=== PATIENT | male | born 1975 | race Caucasian/White ===

== ENCOUNTER 2022-12-09 14:52 | Inpatient (IN) | payer MEDICAID ==
[~2022-12-09] VITALS: Ht 175.3 cm; Wt 84.9 kg
[2022-12-09 14:53] VITALS: BP_SYST 148; PULSE 131; RESP 20; TEMP 97; O2SAT 98
[2022-12-09] MEDS ORDERED: NACL 0.9% 1,000 ML IV ONE ×3 (15:15→17:00)
[2022-12-09] MEDS ORDERED: NALOXONE HCL 2 MG/2 ML SYR (NARCAN) IVP ONE (15:15)
[2022-12-09] MEDS ORDERED: NALOXONE HCL 2 MG/2 ML SYR ONE (15:23)
[2022-12-09 15:34] LABS: HEMOGLOBIN 12.2 g/dL (14.0-18.0); MEAN CORPUSCULAR VOLUME 96 fL (79.0-98.0)
[2022-12-09 15:42] LABS: HEMATOCRIT 38.6 % (36-54); MEAN CORPUSCULAR HEMOGLOBIN 30 pg (27-31); MEAN CORPUSCULAR HGB CONC 32 % (32-36); PLATELET COUNT (AUTO) 118 K/uL (130-430); RED BLOOD CELL COUNT(AUTO) 4.02 MIL/uL (4.2-6.2); RED CELL DISTRIBUTION WIDTH 20.6 % (9.0-15.0); WHITE BLOOD COUNT (AUTO) 4.1 K/uL (4.8-10.8)
[2022-12-09 15:52] LABS: ANION GAP 15 (5-15); CARBON DIOXIDE 24 mmol/L (23-29); CHLORIDE 97 mmol/L (98-107); CREATININE 2.95 mg/dL (0.55-1.30); GFR AFRICAN AMERICAN 29 mL/min (>90); GLUCOSE 108 mg/dL (74-106); POTASSIUM 4.1 mmol/L (3.5-5.1); SODIUM SERUM 136 mmol/L (136-145); UREA NITROGEN, BLOOD 52 mg/dL (8-21)
[2022-12-09 15:54] LABS: GFR NON AFRICAN-AMERICAN 24 mL/min (>90)
[2022-12-09 16:05] LABS: ALANINE AMINOTRANSFERASE 29 U/L (12-78); ALBUMIN 2.3 g/dL (3.4-4.8); ASPARTATE AMINOTRANSFERASE 95 U/L (10-37); CREATINE KINASE, TOTAL 1521 U/L (39-308); TOTAL BILIRUBIN 1.1 mg/dL (0.0-1.0); TOTAL PROTEIN, SERUM 6.2 g/dL (6.4-8.3)
[2022-12-09 16:13] LABS: BAND % (MANUAL) 48 % (0-6); BASOPHILS % (MANUAL) 0 % (0-2); EOSINOPHILS % (MANUAL) 0 % (0-7); LYMPHOCYTES % (MANUAL) 12 % (20-46); METAMYELOCYTES % 1 % (0-0); MONOCYTES % (MANUAL) 14 % (0-11)
[2022-12-09 16:14] LABS: ANISOCYTOSIS 2+; CORRECTED WHITE BLOOD COUNT 3.7 K/uL (4.5-11.0); POLYCHROMASIA 1+
[2022-12-09 16:40] LABS: CKMB RELATIVE INDEX 0.7 (0.0-2.9); CREATINE KINASE MB 10.2 ng/mL (0-3.6)
[2022-12-09] MEDS ORDERED: VANCOMYCIN HCL 1,000 MG in NS 250 ML IV ONE (17:00)
[2022-12-09] MEDS ORDERED: PIPERACILLIN/TAZO 3.375 GM in NS 50 ML IV ONE (17:00)
[2022-12-09] MEDS ORDERED: VANCOMYCIN HCL 1000 MG/VIAL IV ONE (17:30)
[2022-12-09] MEDS ORDERED: PIPERACILLIN/TAZOBACTAM 3.375 GM/VIAL (ZOSYN) IV ONE (17:30)
[2022-12-09 19:41] LABS: BARBITURATE, URINE NEGATIVE (NEG <=200); BENZODIAZEPINE, URINE NEGATIVE (NEG <=150); CANNABINOID, URINE NEGATIVE (NEG <=50); COCAINE, URINE NEGATIVE (NEG <=150); METHAMPHETAMINES SCREEN,URINE NEGATIVE (NEG <=500); OPIATE, URINE POSITIVE (NEG <=100); PHENCYCLIDINE SCREEN,URINE NEGATIVE (NEG <=25); URINE AMPHETAMINE NEGATIVE (NEG <=500); URINE METHADONE NEGATIVE (NEG <=200); URINE PROPOXYPHENE SCREEN NEGATIVE (NEG <=300)
[2022-12-09 19:42] LABS: UR TRICYCLIC ANTIDEPRESSANTS POSITIVE (NEG <=300); URINE OXYCODONE SCREEN POSITIVE (NEG <=100)
[2022-12-09] MEDS: D5/0.45 NS 1,000 ML IV SCH (20:13)
[2022-12-09] MEDS ORDERED: LOPERAMIDE HCL 2 MG CAPSULE PO ONE (20:30)
[2022-12-09] MEDS ORDERED: LEVO125T8 PO (21:08)
[2022-12-09] MEDS ORDERED: BACL10TA PO (21:08)
[2022-12-09] MEDS ORDERED: FURO40TA5 PO (21:08)
[2022-12-09] MEDS ORDERED: CARV25TA55 PO (21:08)
[2022-12-09] MEDS ORDERED: GLIP5TAB13 PO (21:08)
[2022-12-09] MEDS ORDERED: ROSU20TA32 PO (21:08)
[2022-12-09] MEDS ORDERED: AMLO5TAB92 PO (21:08)
[2022-12-09] MEDS ORDERED: KETOROLAC TROMETHAMINE 30 MG VIAL ONE (21:44)
[2022-12-09] MEDS ORDERED: KETOROLAC TROMETHAMINE 30 MG VIAL IVP ONE (21:45)
[2022-12-10] VITALS (7 sets, daily range): BP systolic 99–127; PULSE 67–120; RESP 16–20; TEMP 97.5–98.2; O2SAT 94–100
[2022-12-10] MEDS: traMADol HCL HCL 50 MG TABLET (ULTRAM) PO PRN ×2 (03:28→09:38)
[2022-12-10] MEDS ORDERED: DILTIAZEM HCL 30 MG TABLET PO ONE (03:30)
[2022-12-10] MEDS: D5/0.45 NS 1,000 ML IV SCH ×3 (05:54→21:07)
[2022-12-10] MEDS ORDERED: NALOXONE HCL 0.4 MG/ML AMP (NARCAN) IVP PRN ×2 (11:15)
[2022-12-10] MEDS ORDERED: OXYCODONE/ACETAMINOPHEN 5-325 TABLET PO PRN (11:15)
[2022-12-10] MEDS ORDERED: HYDROcodone/ACETAMIN 5-325 MG TAB (NORCO/ VICODIN) PO PRN (11:15)
[2022-12-10] MEDS ORDERED: ACETAMINOPHEN/CODEINE 300 MG-30 MG TABLET PO PRN (11:15)
[2022-12-10] MEDS: BACLOFEN 10 MG TABLET PO SCH ×2 (14:08→21:04)
[2022-12-10] MEDS ORDERED: LORazepam 2 MG/ML VIAL IVP PRN (18:15)
[2022-12-10] MEDS ORDERED: ONDANSETRON HCL 4 MG/2 ML VIAL IVP PRN (18:15)
[2022-12-10] MEDS: oxyCODONE HCL 5 MG TABLET PO PRN (20:04)
[2022-12-10] MEDS ORDERED: NON-FORMULARY MEDICATION (Rosuvastatin Calcium 1 TAB) PO SCH (21:00)
[2022-12-10] MEDS: FUROSEMIDE 40 MG TABLET PO SCH (21:03)
[2022-12-10] MEDS: CARVEDILOL 25 MG TABLET (COREG) PO SCH (21:03)
[2022-12-10] MEDS: ATORVASTATIN 20 MG TABLET PO SCH (21:04)
[2022-12-11] MEDS: oxyCODONE HCL 5 MG TABLET PO PRN ×4 (00:05→22:56)
[2022-12-11 00:35] VITALS: BP_SYST 147; PULSE 125; RESP 21; TEMP 97.9; O2SAT 94
[2022-12-11] MEDS ORDERED: HYDROmorphone 1 MG/ML INJ. CARTRIDGE IVP ONE (01:00)
[2022-12-11] MEDS ORDERED: NALOXONE HCL 0.4 MG/ML AMP (NARCAN) IVP PRN (01:00)
[2022-12-11] MEDS: LEVOTHYROXINE SODIUM 0.125 MG TABLET PO SCH (06:31)
[2022-12-11 07:09] LABS: BASOPHILS # (AUTO) 0.1 K/uL (0.0-0.2); BASOPHILS % (AUTO) 0.7 % (0.0-2.0); EOSINOPHILS # (AUTO) 0.3 K/uL (0.0-0.4); EOSINOPHILS % (AUTO) 3.1 % (0.0-4.0); HEMATOCRIT 32.2 % (36-54); HEMOGLOBIN 10.4 g/dL (14.0-18.0); LYMPHOCYTES # (AUTO) 0.8 K/uL (1.0-5.5); LYMPHOCYTES % (AUTO) 9.7 % (20.5-51.5); MEAN CORPUSCULAR HEMOGLOBIN 30 pg (27-31); MEAN CORPUSCULAR HGB CONC 32 % (32-36); MEAN CORPUSCULAR VOLUME 94 fL (79.0-98.0); MONOCYTES # (AUTO) 0.6 K/uL (0.0-1.0); MONOCYTES % (AUTO) 7.5 % (1.7-9.3); NEUTROPHILS # (AUTO) 6.6 K/uL (1.8-7.7); PLATELET COUNT (AUTO) 96 K/uL (130-430); RED BLOOD CELL COUNT(AUTO) 3.42 MIL/uL (4.2-6.2); RED CELL DISTRIBUTION WIDTH 20.3 % (9.0-15.0); WHITE BLOOD COUNT (AUTO) 8.3 K/uL (4.8-10.8)
[2022-12-11 07:47] LABS: CALCIUM 7.7 mg/dL (8.4-11.0); CREATININE 1.22 mg/dL (0.55-1.30); PHOSPHORUS 3.7 mg/dL (2.7-4.5); POTASSIUM 3.4 mmol/L (3.5-5.1)
[2022-12-11 07:55] VITALS: BP_SYST 130; PULSE 109; RESP 20; TEMP 97.4; O2SAT 95
[2022-12-11 08:00] VITALS: O2SAT 95
[2022-12-11] MEDS: BACLOFEN 10 MG TABLET PO SCH ×3 (08:09→20:10)
[2022-12-11] MEDS: FUROSEMIDE 40 MG TABLET PO SCH ×2 (08:10→20:15)
[2022-12-11] MEDS: amLODIPine BESYLATE 5 MG TABLET PO SCH (08:10)
[2022-12-11] MEDS: CARVEDILOL 25 MG TABLET (COREG) PO SCH ×2 (08:11→20:14)
[2022-12-11 09:36] LABS: CKMB RELATIVE INDEX 0.4 (0.0-2.9); CREATINE KINASE MB 4.9 ng/mL (0-3.6)
[2022-12-11] MEDS: traMADol HCL HCL 50 MG TABLET (ULTRAM) PO PRN ×2 (11:29→20:11)
[2022-12-11] MEDS: D5/0.45 NS 1,000 ML IV SCH ×2 (11:30→16:42)
[2022-12-11 12:00] VITALS: BP_SYST 110; PULSE 103; RESP 18; TEMP 98.2; O2SAT 99
[2022-12-11] MEDS ORDERED: POTASSIUM CHLORIDE 20 MEQ TAB.PRT.SR PO ONE (12:15)
[2022-12-11 16:00] VITALS: BP_SYST 107; PULSE 67; RESP 18; TEMP 98.2; O2SAT 99
[2022-12-11] MEDS: ATORVASTATIN 20 MG TABLET PO SCH (20:10)
[2022-12-11 20:34] VITALS: BP_SYST 100; PULSE 73; RESP 18; TEMP 97.2; O2SAT 98
[2022-12-12] VITALS (7 sets, daily range): BP systolic 127–142; PULSE 88–101; RESP 18–19; TEMP 97.2–98.1; O2SAT 90–98
[2022-12-12] MEDS: D5/0.45 NS 1,000 ML IV SCH ×3 (04:12→23:15)
[2022-12-12] MEDS: oxyCODONE HCL 5 MG TABLET PO PRN ×4 (04:12→19:30)
[2022-12-12 04:50] LABS: BASOPHILS % (AUTO) 0.4 % (0.0-2.0); EOSINOPHILS # (AUTO) 0.2 K/uL (0.0-0.4); EOSINOPHILS % (AUTO) 2.5 % (0.0-4.0); HEMATOCRIT 28.9 % (36-54); HEMOGLOBIN 9.3 g/dL (14.0-18.0); LYMPHOCYTES # (AUTO) 0.8 K/uL (1.0-5.5); MEAN CORPUSCULAR HEMOGLOBIN 30 pg (27-31); MEAN CORPUSCULAR HGB CONC 32 % (32-36); MEAN CORPUSCULAR VOLUME 94 fL (79.0-98.0); MONOCYTES # (AUTO) 0.7 K/uL (0.0-1.0); MONOCYTES % (AUTO) 8.5 % (1.7-9.3); NEUTROPHILS # (AUTO) 6.8 K/uL (1.8-7.7); NEUTROPHILS % (AUTO) 79.6 % (40.0-70.0); PLATELET COUNT (AUTO) 89 K/uL (130-430); RED BLOOD CELL COUNT(AUTO) 3.06 MIL/uL (4.2-6.2); RED CELL DISTRIBUTION WIDTH 20.2 % (9.0-15.0); WHITE BLOOD COUNT (AUTO) 8.6 K/uL (4.8-10.8)
[2022-12-12 05:11] LABS: ALBUMIN 1.7 g/dL (3.4-4.8); CREATININE 0.86 mg/dL (0.55-1.30); PHOSPHORUS 2.9 mg/dL (2.7-4.5); TOTAL BILIRUBIN 0.4 mg/dL (0.0-1.0); TOTAL PROTEIN, SERUM 4.8 g/dL (6.4-8.3)
[2022-12-12 05:16] LABS: CALCIUM 6.8 mg/dL (8.4-11.0); POTASSIUM 2.8 mmol/L (3.5-5.1)
[2022-12-12] MEDS ORDERED: CALCIUM GLUCONATE 2 GM in NS 100 ML IV ONE (05:45)
[2022-12-12] MEDS ORDERED: POTASSIUM CHLORIDE 20 MEQ TAB.PRT.SR PO ONE (05:45)
[2022-12-12] MEDS ORDERED: CALCIUM GLUCONATE 1 GM/10 ML VIAL ONE (06:10)
[2022-12-12] MEDS: LEVOTHYROXINE SODIUM 0.125 MG TABLET PO SCH (06:37)
[2022-12-12] MEDS: CARVEDILOL 25 MG TABLET (COREG) PO SCH ×2 (10:47→20:28)
[2022-12-12] MEDS: FUROSEMIDE 40 MG TABLET PO SCH ×2 (10:48→20:29)
[2022-12-12] MEDS: amLODIPine BESYLATE 5 MG TABLET PO SCH (10:49)
[2022-12-12] MEDS: BACLOFEN 10 MG TABLET PO SCH ×3 (10:55→20:29)
[2022-12-12] MEDS ORDERED: NALOXONE HCL 0.4 MG/ML AMP (NARCAN) IVP PRN (16:45)
[2022-12-12] MEDS: MORPHINE 2 MG/ML INJ. SYRINGE IVP PRN ×2 (17:25→23:40)
[2022-12-12] MEDS: ATORVASTATIN 20 MG TABLET PO SCH (20:28)
[2022-12-13 00:42] VITALS: BP_SYST 147; PULSE 96; RESP 18; TEMP 96.3; O2SAT 98
[2022-12-13] MEDS: oxyCODONE HCL 5 MG TABLET PO PRN ×3 (03:06→10:59)
[2022-12-13 05:15] LABS: BASOPHILS # (AUTO) 0.1 K/uL (0.0-0.2); BASOPHILS % (AUTO) 0.5 % (0.0-2.0); EOSINOPHILS # (AUTO) 0.3 K/uL (0.0-0.4); EOSINOPHILS % (AUTO) 3.2 % (0.0-4.0); HEMATOCRIT 31.4 % (36-54); HEMOGLOBIN 10.1 g/dL (14.0-18.0); LYMPHOCYTES # (AUTO) 0.8 K/uL (1.0-5.5); LYMPHOCYTES % (AUTO) 8.8 % (20.5-51.5); MEAN CORPUSCULAR HEMOGLOBIN 30 pg (27-31); MEAN CORPUSCULAR HGB CONC 32 % (32-36); MEAN CORPUSCULAR VOLUME 94 fL (79.0-98.0); MONOCYTES # (AUTO) 0.4 K/uL (0.0-1.0); MONOCYTES % (AUTO) 3.8 % (1.7-9.3); NEUTROPHILS # (AUTO) 7.9 K/uL (1.8-7.7); NEUTROPHILS % (AUTO) 83.7 % (40.0-70.0); PLATELET COUNT (AUTO) 89 K/uL (130-430); RED BLOOD CELL COUNT(AUTO) 3.33 MIL/uL (4.2-6.2); RED CELL DISTRIBUTION WIDTH 19.9 % (9.0-15.0); WHITE BLOOD COUNT (AUTO) 9.4 K/uL (4.8-10.8)
[2022-12-13] MEDS: LEVOTHYROXINE SODIUM 0.125 MG TABLET PO SCH (05:40)
[2022-12-13 05:45] LABS: CREATININE 0.67 mg/dL (0.55-1.30); PHOSPHORUS 4.4 mg/dL (2.7-4.5); POTASSIUM 3.3 mmol/L (3.5-5.1)
[2022-12-13 06:31] LABS: CKMB RELATIVE INDEX 0.5 (0.0-2.9); CREATINE KINASE MB 2.2 ng/mL (0-3.6)
[2022-12-13 07:30] VITALS: O2SAT 96
[2022-12-13 07:56] VITALS: BP_SYST 141; PULSE 94; RESP 16; TEMP 97.1; O2SAT 93
[2022-12-13] MEDS: FUROSEMIDE 40 MG TABLET PO SCH ×2 (09:07→21:06)
[2022-12-13] MEDS: amLODIPine BESYLATE 5 MG TABLET PO SCH (09:07)
[2022-12-13] MEDS: BACLOFEN 10 MG TABLET PO SCH ×3 (09:08→21:05)
[2022-12-13] MEDS: CARVEDILOL 25 MG TABLET (COREG) PO SCH ×2 (09:08→21:07)
[2022-12-13] MEDS: D5/0.45 NS 1,000 ML IV SCH (09:34)
[2022-12-13 11:25] VITALS: BP_SYST 139; PULSE 99; RESP 18; TEMP 98.4; O2SAT 99
[2022-12-13 17:00] VITALS: BP_SYST 138; PULSE 94; RESP 18; TEMP 98.4; O2SAT 99
[2022-12-13 20:00] VITALS: BP_SYST 135; PULSE 114; RESP 20; TEMP 98.1; O2SAT 98
[2022-12-13] MEDS: MORPHINE 2 MG/ML INJ. SYRINGE IVP PRN (20:05)
[2022-12-13] MEDS: ATORVASTATIN 20 MG TABLET PO SCH (21:07)
[2022-12-13] MEDS ORDERED: POTASSIUM CHLORIDE 20 MEQ TAB.PRT.SR PO ONE (22:30)
[2022-12-14] VITALS (7 sets, daily range): BP systolic 126–156; PULSE 91–99; RESP 16–28; TEMP 97.3–98.4; O2SAT 94–98
[2022-12-14 05:46] LABS: BASOPHILS % (AUTO) 0.4 % (0.0-2.0); EOSINOPHILS # (AUTO) 0.3 K/uL (0.0-0.4); EOSINOPHILS % (AUTO) 3.1 % (0.0-4.0); HEMATOCRIT 32.2 % (36-54); HEMOGLOBIN 10.4 g/dL (14.0-18.0); LYMPHOCYTES % (AUTO) 8.9 % (20.5-51.5); MEAN CORPUSCULAR HEMOGLOBIN 30 pg (27-31); MEAN CORPUSCULAR HGB CONC 32 % (32-36); MEAN CORPUSCULAR VOLUME 94 fL (79.0-98.0); MONOCYTES # (AUTO) 0.8 K/uL (0.0-1.0); MONOCYTES % (AUTO) 7.1 % (1.7-9.3); NEUTROPHILS # (AUTO) 8.6 K/uL (1.8-7.7); NEUTROPHILS % (AUTO) 80.5 % (40.0-70.0); PLATELET COUNT (AUTO) 93 K/uL (130-430); RED BLOOD CELL COUNT(AUTO) 3.41 MIL/uL (4.2-6.2); RED CELL DISTRIBUTION WIDTH 19.7 % (9.0-15.0); WHITE BLOOD COUNT (AUTO) 10.7 K/uL (4.8-10.8)
[2022-12-14 06:14] LABS: CALCIUM 8.2 mg/dL (8.4-11.0); CREATININE 0.67 mg/dL (0.55-1.30); POTASSIUM 3.2 mmol/L (3.5-5.1); TOTAL BILIRUBIN 0.6 mg/dL (0.0-1.0); TOTAL PROTEIN, SERUM 5.7 g/dL (6.4-8.3)
[2022-12-14] MEDS: LEVOTHYROXINE SODIUM 0.125 MG TABLET PO SCH (07:03)
[2022-12-14 07:19] LABS: CKMB RELATIVE INDEX 0.5 (0.0-2.9); CREATINE KINASE MB 1.8 ng/mL (0-3.6)
[2022-12-14] MEDS: CARVEDILOL 25 MG TABLET (COREG) PO SCH ×2 (09:54→20:24)
[2022-12-14] MEDS: BACLOFEN 10 MG TABLET PO SCH ×3 (09:54→20:24)
[2022-12-14] MEDS: amLODIPine BESYLATE 5 MG TABLET PO SCH (09:55)
[2022-12-14] MEDS: D5/0.45 NS 1,000 ML IV SCH ×2 (09:56→09:57)
[2022-12-14] MEDS: FUROSEMIDE 40 MG TABLET PO SCH ×2 (09:56→20:24)
[2022-12-14] MEDS ORDERED: POTASSIUM CHLORIDE 20 MEQ TAB.PRT.SR PO ONE (12:45)
[2022-12-14] MEDS: NORMAL SALINE 5 ML DISP.SYRIN IVF SCH ×2 (15:37→20:26)
[2022-12-14] MEDS: ATORVASTATIN 20 MG TABLET PO SCH (20:23)
[2022-12-15 02:05] VITALS: BP_SYST 133; PULSE 94; RESP 17; TEMP 98.4; O2SAT 93
[2022-12-15 04:27] LABS: BASOPHILS % (AUTO) 0.3 % (0.0-2.0); EOSINOPHILS # (AUTO) 0.3 K/uL (0.0-0.4); EOSINOPHILS % (AUTO) 2.1 % (0.0-4.0); HEMATOCRIT 32.9 % (36-54); HEMOGLOBIN 10.6 g/dL (14.0-18.0); LYMPHOCYTES # (AUTO) 1.2 K/uL (1.0-5.5); MEAN CORPUSCULAR HEMOGLOBIN 30 pg (27-31); MEAN CORPUSCULAR HGB CONC 32 % (32-36); MEAN CORPUSCULAR VOLUME 94 fL (79.0-98.0); MONOCYTES # (AUTO) 0.8 K/uL (0.0-1.0); MONOCYTES % (AUTO) 5.8 % (1.7-9.3); NEUTROPHILS # (AUTO) 11.5 K/uL (1.8-7.7); NEUTROPHILS % (AUTO) 82.8 % (40.0-70.0); PLATELET COUNT (AUTO) 111 K/uL (130-430); RED BLOOD CELL COUNT(AUTO) 3.51 MIL/uL (4.2-6.2); RED CELL DISTRIBUTION WIDTH 20.1 % (9.0-15.0); WHITE BLOOD COUNT (AUTO) 13.9 K/uL (4.8-10.8)
[2022-12-15 04:47] LABS: ALBUMIN 2.3 g/dL (3.4-4.8); CALCIUM 8.8 mg/dL (8.4-11.0); CREATININE 0.95 mg/dL (0.55-1.30); PHOSPHORUS 4.3 mg/dL (2.7-4.5); POTASSIUM 4.7 mmol/L (3.5-5.1); TOTAL BILIRUBIN 0.8 mg/dL (0.0-1.0); TOTAL PROTEIN, SERUM 6.4 g/dL (6.4-8.3)
[2022-12-15] MEDS: NORMAL SALINE 5 ML DISP.SYRIN IVF SCH ×2 (06:18→16:09)
[2022-12-15] MEDS: LEVOTHYROXINE SODIUM 0.125 MG TABLET PO SCH (06:19)
[2022-12-15 07:01] LABS: TOTAL IRON BIND. CAPACITY 140 ug/dL (250-450)
[2022-12-15] MEDS ORDERED: DIATR MEGLU/DIATRIZ SOD 30 ML SOLUTION PO ONE (07:46)
[2022-12-15 08:00] VITALS: BP_SYST 134; PULSE 94; RESP 18; TEMP 96.7; O2SAT 93
[2022-12-15] MEDS: BACLOFEN 10 MG TABLET PO SCH ×2 (10:22→15:00)
[2022-12-15] MEDS: amLODIPine BESYLATE 5 MG TABLET PO SCH (10:23)
[2022-12-15] MEDS: FUROSEMIDE 40 MG TABLET PO SCH (10:23)
[2022-12-15] MEDS: CARVEDILOL 25 MG TABLET (COREG) PO SCH (10:23)
[2022-12-15 11:23] VITALS: BP_SYST 114; PULSE 90; RESP 16; TEMP 97.5; O2SAT 94
[2022-12-15] MEDS ORDERED: LIP20 PO (14:31)
[2022-12-15] MEDS ORDERED: OXYIR5 PO (14:31)
[2022-12-15] MEDS ORDERED: TRAM50TA2 PO (14:31)
[2022-12-15 15:23] VITALS: BP_SYST 118; PULSE 98; RESP 16; TEMP 96.9; O2SAT 93
[2022-12-15 20:47] VITALS: BP_SYST 108; PULSE 95; RESP 17; TEMP 98.2; O2SAT 89
[2022-12-16 08:17] LABS: AFP, TUMOR MARKER <1.8 ng/mL (0.0-6.9); FERRITIN 13379 ng/mL (30-400)
[2022-12-16 12:17] LABS: ANTI NUCLEAR AB WITH REFLEX Negative (Negative)
[2022-12-17 03:12] LABS: HEPATITIS A AB, IgM Negative (Negative); HEPATITIS B CORE AB, IgM Negative (Negative); HEPATITIS B SURFACE AG Negative (Negative); HEPATITIS C VIRUS AB Non Reactive (Non Reactive)
[2022-12-18 16:06] LABS: ANTI-SMOOTH MUSCLE AB 4 Units (0-19)
== END 2022-12-15 21:20 | disposition home or self-care (01) | DRG 720 ==
LOC: SED 14:52 → STU 18:53 → SMU 12-14 18:19
PROVIDERS: ADMIT Preventive Medicine Preventive Medicine/Occupational Environmental Medicine; ATTEND Preventive Medicine Preventive Medicine/Occupational Environmental Medicine
DX: A41.9 Sepsis, unspecified organism (principal); N17.0 Acute kidney failure with tubular necrosis; E43 Unspecified severe protein-calorie malnutrition; I21.A1 Myocardial infarction type 2; D69.6 Thrombocytopenia, unspecified; E83.51 Hypocalcemia; E83.41 Hypermagnesemia; E87.1 Hypo-osmolality and hyponatremia; M62.82 Rhabdomyolysis; T40.2X4A Poisoning by other opioids, undetermined, initial encounter; E88.09 Other disorders of plasma-protein metabolism, not elsewhere classified; E03.9 Hypothyroidism, unspecified; E78.5 Hyperlipidemia, unspecified; M54.9 Dorsalgia, unspecified; R74.01 Elevation of levels of liver transaminase levels; E86.0 Dehydration; D64.9 Anemia, unspecified; E87.6 Hypokalemia; G89.4 Chronic pain syndrome; I10 Essential (primary) hypertension; E11.65 Type 2 diabetes mellitus with hyperglycemia; I25.2 Old myocardial infarction; Z88.6 Allergy status to analgesic agent; Z79.899 Other long term (current) drug therapy; Z93.3 Colostomy status; Z90.49 Acquired absence of other specified parts of digestive tract; Z85.048 Personal history of other malignant neoplasm of rectum, rectosigmoid junction, and anus
CPT/HCPCS: 36415; 71045; 76376; 76700-TC; 76770; 80048; 80053; 80074; 80307; 82105; 82550; 82553; 82728; 82977; 83516; 83540; 83550; 83605; 83735; 84100; 84484; 85007; 85025; 85027; 86038; 87040; 87081; 93005; 93306; 97110-GP; 97116-GP; 97530-GP; 99291; G0378; J0610; J1170; J1885; J2060; J2270; J2310; J2543; J3370; J7050; Q9964; Q9967

== ENCOUNTER 2023-01-03 02:49 | Inpatient (IN) | payer MEDICAID ==
[~2023-01-03] VITALS: Ht 177.8 cm; Wt 89.6 kg
[2023-01-03] VITALS (13 sets, daily range): BP systolic 111–157; PULSE 96–124; RESP 20–24; TEMP 96.1–98; O2SAT 96–100
[~2023-01-03 02:49] MED LIST: AMLO5TAB92 PO; BACL10TA PO; CARV25TA55 PO; FURO40TA5 PO; GLIP5TAB13 PO; LEVO125T8 PO; LIP20 PO; OXYIR5 PO; ROSU20TA73 PO; TRAM50TA2 PO
[2023-01-03] MEDS ORDERED: cefTRIAXone 1 GM IVPB PREMIX 50 ML IV ONE (03:00)
[2023-01-03 03:09] LABS: BASOPHILS % (AUTO) 0.8 % (0.0-2.0); EOSINOPHILS # (AUTO) 0.2 K/uL (0.0-0.4); EOSINOPHILS % (AUTO) 4.7 % (0.0-4.0); HEMATOCRIT 26.3 % (36-54); HEMOGLOBIN 8.3 g/dL (14.0-18.0); LYMPHOCYTES # (AUTO) 0.7 K/uL (1.0-5.5); MEAN CORPUSCULAR HEMOGLOBIN 30 pg (27-31); MEAN CORPUSCULAR HGB CONC 32 % (32-36); MEAN CORPUSCULAR VOLUME 94 fL (79.0-98.0); MONOCYTES # (AUTO) 0.4 K/uL (0.0-1.0); MONOCYTES % (AUTO) 12.3 % (1.7-9.3); NEUTROPHILS # (AUTO) 2.1 K/uL (1.8-7.7); NEUTROPHILS % (AUTO) 62.2 % (40.0-70.0); PLATELET COUNT (AUTO) 130 K/uL (130-430); RED CELL DISTRIBUTION WIDTH 21.9 % (9.0-15.0); WHITE BLOOD COUNT (AUTO) 3.4 K/uL (4.8-10.8)
[2023-01-03 03:28] LABS: INFLUENZA TYPE A negative (NEGATIVE); INFLUENZA TYPE B NEGATIVE (NEGATIVE)
[2023-01-03 04:00] LABS: ALANINE AMINOTRANSFERASE 17 U/L (12-78); ALBUMIN 2.2 g/dL (3.4-4.8); ANION GAP 6 (5-15); ASPARTATE AMINOTRANSFERASE 36 U/L (10-37); CARBON DIOXIDE 29 mmol/L (23-29); CHLORIDE 91 mmol/L (98-107); CREATININE 0.84 mg/dL (0.55-1.30); GFR AFRICAN AMERICAN 125 mL/min (>90); GLUCOSE 101 mg/dL (74-106); POTASSIUM 4.5 mmol/L (3.5-5.1); SODIUM SERUM 126 mmol/L (136-145); TOTAL BILIRUBIN 0.6 mg/dL (0.0-1.0); TOTAL PROTEIN, SERUM 6.3 g/dL (6.4-8.3); UREA NITROGEN, BLOOD 14 mg/dL (8-21)
[2023-01-03 04:01] LABS: GFR NON AFRICAN-AMERICAN 104 mL/min (>90)
[2023-01-03 04:02] LABS: CALCIUM 6.9 mg/dL (8.4-11.0)
[2023-01-03] MEDS ORDERED: iohexoL 350 mgI/mL, 100 ML INFUS..BTL IV ONE (04:10)
[2023-01-03] MEDS ORDERED: NACL 0.9% 1,000 ML IV ONE (04:45)
[2023-01-03] MEDS ORDERED: LISI40TA13 PO (04:57)
[2023-01-03] MEDS ORDERED: FUROSEMIDE 100 MG/10 ML VIAL IVP ONE (06:00)
[2023-01-03] MEDS ORDERED: NALOXONE HCL 2 MG/2 ML SYR IVP PRN (08:15)
[2023-01-03] MEDS ORDERED: MORPHINE 2 MG/ML INJ. SYRINGE IVP ONE (08:15)
[2023-01-03] MEDS ORDERED: MORPHINE 2 MG/ML INJ. SYRINGE ONE (08:16)
[2023-01-03] MEDS ORDERED: ONDANSETRON HCL 4 MG/2 ML VIAL IVP PRN (09:15)
[2023-01-03] MEDS ORDERED: traMADol HCL HCL 50 MG TABLET (ULTRAM) PO PRN (09:15)
[2023-01-03] MEDS ORDERED: LEVOTHYROXINE SODIUM 0.125 MG TABLET PO ONE (10:00)
[2023-01-03] MEDS ORDERED: amLODIPine BESYLATE 5 MG TABLET PO ONE (10:00)
[2023-01-03] MEDS: oxyCODONE HCL 5 MG TABLET PO PRN ×2 (10:29→20:22)
[2023-01-03] MEDS ORDERED: NALOXONE HCL 0.4 MG/ML AMP (NARCAN) IVP PRN (11:45)
[2023-01-03] MEDS: IPRATROPIUM BROM 0.5 MG/2.5 ML VIAL.NEB (ATROVENT) INH PRN ×2 (11:49→23:42)
[2023-01-03] MEDS: ALBUTEROL SULFATE 0.083% 2.5 MG/3 ML VIAL.NEB INH SCH ×3 (11:50→23:42)
[2023-01-03] MEDS: MORPHINE 2 MG/ML INJ. SYRINGE IVP PRN (12:25)
[2023-01-03] MEDS: NORMAL SALINE 5 ML DISP.SYRIN IVF SCH ×2 (14:29→22:17)
[2023-01-03] MEDS: LORazepam 2 MG/ML VIAL IVP PRN ×2 (15:28→22:33)
[2023-01-03] MEDS: BACLOFEN 10 MG TABLET PO SCH ×2 (15:42→20:22)
[2023-01-03] MEDS ORDERED: buPROPion HCL 75 MG TABLET PO ONE (16:30)
[2023-01-03] MEDS: cefTRIAXone 1 GM in D5W 50 ML IV SCH (16:38)
[2023-01-03] MEDS: lisinopriL 20 MG TABLET PO SCH (20:21)
[2023-01-03] MEDS: ATORVASTATIN 20 MG TABLET PO SCH (20:22)
[2023-01-03] MEDS: CARVEDILOL 25 MG TABLET (COREG) PO SCH (20:23)
[2023-01-03] MEDS: FUROSEMIDE 40 MG TABLET PO SCH (20:24)
[2023-01-03] MEDS ORDERED: buPROPion HCL 75 MG TABLET PO SCH (21:00)
[2023-01-03] MEDS: SULFAMETHOXAZOLE /TRIMETHOPRIM 30 ML in D5W 500 ML IV SCH (22:17)
[2023-01-04] VITALS (30 sets, daily range): BP systolic 78–181; PULSE 86–125; RESP 18–33; TEMP 96.1–98.5; O2SAT 89–100
[2023-01-04 01:10] LABS: ABG O2 SAT% ESTIMATE 98.2 % (94.0-100.0); BLOOD GAS BASE EXCESS -0.1 mmol/L (-3.0-3.0); BLOOD GAS HCO3 29.1 mmol/L (21.0-27.0); BLOOD GAS PO2 137.5 mmHg (75.0-100.0)
[2023-01-04 02:08] LABS: BLOOD GAS PCO2 68.3 mmHg (32.0-45.0); BLOOD GAS PH 7.248 (7.350-7.450)
[2023-01-04] MEDS: ALBUTEROL SULFATE 0.083% 2.5 MG/3 ML VIAL.NEB INH SCH ×6 (02:20→23:13)
[2023-01-04] MEDS: MORPHINE 2 MG/ML INJ. SYRINGE IVP PRN ×2 (03:18→10:54)
[2023-01-04 06:09] LABS: BASOPHILS % (AUTO) 0.6 % (0.0-2.0); EOSINOPHILS # (AUTO) 0.1 K/uL (0.0-0.4); EOSINOPHILS % (AUTO) 1.8 % (0.0-4.0); HEMATOCRIT 23.6 % (36-54); HEMOGLOBIN 7.5 g/dL (14.0-18.0); LYMPHOCYTES # (AUTO) 0.7 K/uL (1.0-5.5); LYMPHOCYTES % (AUTO) 13.1 % (20.5-51.5); MEAN CORPUSCULAR HEMOGLOBIN 30 pg (27-31); MEAN CORPUSCULAR HGB CONC 32 % (32-36); MEAN CORPUSCULAR VOLUME 95 fL (79.0-98.0); MONOCYTES # (AUTO) 0.7 K/uL (0.0-1.0); MONOCYTES % (AUTO) 13.2 % (1.7-9.3); NEUTROPHILS # (AUTO) 3.8 K/uL (1.8-7.7); NEUTROPHILS % (AUTO) 71.3 % (40.0-70.0); PLATELET COUNT (AUTO) 129 K/uL (130-430); RED BLOOD CELL COUNT(AUTO) 2.49 MIL/uL (4.2-6.2); RED CELL DISTRIBUTION WIDTH 21.8 % (9.0-15.0); WHITE BLOOD COUNT (AUTO) 5.4 K/uL (4.8-10.8)
[2023-01-04 06:35] LABS: ERYTHROCYTE SEDIMENTATION RATE 35 MM/HR (0-15)
[2023-01-04] MEDS: NORMAL SALINE 5 ML DISP.SYRIN IVF SCH ×3 (06:38→22:53)
[2023-01-04] MEDS: SULFAMETHOXAZOLE /TRIMETHOPRIM 30 ML in D5W 500 ML IV SCH ×2 (06:38→13:39)
[2023-01-04 06:46] LABS: CREATININE 0.74 mg/dL (0.55-1.30); POTASSIUM 5.3 mmol/L (3.5-5.1)
[2023-01-04 07:13] LABS: CALCIUM 6.8 mg/dL (8.4-11.0)
[2023-01-04] MEDS: LORazepam 2 MG/ML VIAL IVP PRN ×2 (08:02→13:38)
[2023-01-04 08:20] LABS: ABG O2 SAT% ESTIMATE 98.2 % (94.0-100.0); ALLEN'S TEST POSITIVE (P); BLOOD GAS HCO3 24.5 mmol/L (21.0-27.0); BLOOD GAS PCO2 43.7 mmHg (32.0-45.0); BLOOD GAS PH 7.367 (7.350-7.450)
[2023-01-04] MEDS: LEVOTHYROXINE SODIUM 0.125 MG TABLET PO SCH (09:00)
[2023-01-04] MEDS: amLODIPine BESYLATE 5 MG TABLET PO SCH (09:00)
[2023-01-04] MEDS: CARVEDILOL 25 MG TABLET (COREG) PO SCH ×2 (09:00→22:44)
[2023-01-04] MEDS: BACLOFEN 10 MG TABLET PO SCH ×3 (09:00→22:44)
[2023-01-04] MEDS: FUROSEMIDE 40 MG TABLET PO SCH (09:00)
[2023-01-04] MEDS: SERTRALINE HCL 50 MG TABLET PO SCH (09:00)
[2023-01-04] MEDS ORDERED: ROCURONIUM BROMIDE 10 MG/ML (ZEMURON) ONE (15:00)
[2023-01-04] MEDS ORDERED: ETOMIDATE 20 MG/ 10 ML VIAL (AMIDATE) ONE (15:00)
[2023-01-04] MEDS ORDERED: ENOXAPARIN SODIUM 40 MG/0.4 ML SYRINGE SUBCUT ONE (15:15)
[2023-01-04 15:28] LABS: ABG O2 SAT% ESTIMATE 99.6 % (94.0-100.0); BLOOD GAS BASE EXCESS 0.1 mmol/L (-3.0-3.0); BLOOD GAS HCO3 27.3 mmol/L (21.0-27.0); BLOOD GAS PH 7.317 (7.350-7.450)
[2023-01-04 15:30] LABS: ALLEN'S TEST POSITIVE (P); BLOOD GAS PCO2 54.6 mmHg (32.0-45.0)
[2023-01-04] MEDS ORDERED: METHYLPREDNISOLONE SOD SUCC 40 MG/ML VIAL IVP ONE (15:30)
[2023-01-04] MEDS: PROPOFOL DRIP 100 ML IV PRN ×2 (15:50→22:41)
[2023-01-04] MEDS: FENTANYL CITRATE-0.9 % NACL/PF 100 ML IV PRN (15:51)
[2023-01-04] MEDS: cefTRIAXone 1 GM in D5W 50 ML IV SCH (15:52)
[2023-01-04] MEDS: AZITHROMYCIN 500 MG in NS 250 ML IV SCH (18:09)
[2023-01-04] MEDS: INSULIN REGULAR, HUMAN 100 UNITS/ML, 3 ML VIAL (humuLIN R) SUBCUT PRN (18:15)
[2023-01-04] MEDS: NOREPINEPHRINE BITARTRATE 4 MG in NS 246 ML IV PRN (20:17)
[2023-01-04] MEDS: lisinopriL 20 MG TABLET PO SCH (21:00)
[2023-01-04] MEDS: ATORVASTATIN 20 MG TABLET PO SCH (22:43)
[2023-01-04] MEDS: METHYLPREDNISOLONE SOD SUCC 40 MG/ML VIAL IVP SCH (22:50)
[2023-01-05] VITALS (31 sets, daily range): BP systolic 102–143; PULSE 76–87; RESP 19–25; TEMP 97.8–99.3; O2SAT 75–100
[2023-01-05] MEDS: SULFAMETHOXAZOLE /TRIMETHOPRIM 30 ML in D5W 500 ML IV SCH ×4 (00:01→23:31)
[2023-01-05] MEDS: PROPOFOL DRIP 100 ML IV PRN ×6 (03:41→21:15)
[2023-01-05] MEDS: ALBUTEROL SULFATE 0.083% 2.5 MG/3 ML VIAL.NEB INH SCH ×5 (04:58→19:18)
[2023-01-05 05:41] LABS: BASOPHILS % (AUTO) 0.2 % (0.0-2.0); EOSINOPHILS % (AUTO) 0.3 % (0.0-4.0); LYMPHOCYTES # (AUTO) 0.5 K/uL (1.0-5.5); LYMPHOCYTES % (AUTO) 10.1 % (20.5-51.5); MEAN CORPUSCULAR HEMOGLOBIN 30 pg (27-31); MEAN CORPUSCULAR HGB CONC 32 % (32-36); MEAN CORPUSCULAR VOLUME 95 fL (79.0-98.0); MONOCYTES # (AUTO) 0.4 K/uL (0.0-1.0); MONOCYTES % (AUTO) 7.6 % (1.7-9.3); NEUTROPHILS # (AUTO) 4.3 K/uL (1.8-7.7); NEUTROPHILS % (AUTO) 81.8 % (40.0-70.0); PLATELET COUNT (AUTO) 147 K/uL (130-430); RED BLOOD CELL COUNT(AUTO) 2.14 MIL/uL (4.2-6.2); RED CELL DISTRIBUTION WIDTH 21.6 % (9.0-15.0); WHITE BLOOD COUNT (AUTO) 5.2 K/uL (4.8-10.8)
[2023-01-05 05:54] LABS: HEMATOCRIT 20.4 % (36-54); HEMOGLOBIN 6.5 g/dL (14.0-18.0)
[2023-01-05 05:57] LABS: ERYTHROCYTE SEDIMENTATION RATE 37 MM/HR (0-15)
[2023-01-05] MEDS: INSULIN REGULAR, HUMAN 100 UNITS/ML, 3 ML VIAL (humuLIN R) SUBCUT PRN ×2 (06:23→17:41)
[2023-01-05] MEDS: NORMAL SALINE 5 ML DISP.SYRIN IVF SCH ×3 (06:27→23:33)
[2023-01-05 06:28] LABS: ALBUMIN 1.8 g/dL (3.4-4.8); CREATININE 0.73 mg/dL (0.55-1.30); PHOSPHORUS 3.8 mg/dL (2.7-4.5); POTASSIUM 5.2 mmol/L (3.5-5.1); TOTAL BILIRUBIN 0.2 mg/dL (0.0-1.0); TOTAL PROTEIN, SERUM 5.5 g/dL (6.4-8.3)
[2023-01-05 06:32] LABS: CALCIUM 5.9 mg/dL (8.4-11.0)
[2023-01-05] MEDS: IPRATROPIUM BROM 0.5 MG/2.5 ML VIAL.NEB (ATROVENT) INH PRN ×2 (07:07→15:34)
[2023-01-05] MEDS: BACLOFEN 10 MG TABLET PO SCH (08:53)
[2023-01-05] MEDS: amLODIPine BESYLATE 5 MG TABLET PO SCH (08:54)
[2023-01-05] MEDS: FAMOTIDINE 20 MG TABLET PO SCH (08:54)
[2023-01-05] MEDS: CARVEDILOL 25 MG TABLET (COREG) PO SCH (08:54)
[2023-01-05] MEDS: SERTRALINE HCL 50 MG TABLET PO SCH (08:54)
[2023-01-05] MEDS: METHYLPREDNISOLONE SOD SUCC 40 MG/ML VIAL IVP SCH ×2 (08:55→21:52)
[2023-01-05] MEDS: LEVOTHYROXINE SODIUM 0.125 MG TABLET PO SCH (08:55)
[2023-01-05] MEDS: ENOXAPARIN SODIUM 40 MG/0.4 ML SYRINGE SUBCUT SCH (08:56)
[2023-01-05] MEDS ORDERED: SODIUM ZIRCONIUM CYCLOSILICATE 10 GM POWD.PACK PO ONE (09:45)
[2023-01-05] MEDS ORDERED: CALCIUM GLUCONATE 2 GM in NS 100 ML IV ONE (11:00)
[2023-01-05] MEDS: LR 1,000 ML IV SCH (11:17)
[2023-01-05] MEDS: FENTANYL CITRATE-0.9 % NACL/PF 100 ML IV PRN ×2 (14:32→22:00)
[2023-01-05] MEDS: QUEtiapine FUMARATE 100 MG TABLET PO SCH ×2 (14:33→21:18)
[2023-01-05] MEDS: AZITHROMYCIN 500 MG in NS 250 ML IV SCH (17:14)
[2023-01-05] MEDS: ATORVASTATIN 20 MG TABLET PO SCH (21:18)
[2023-01-05] MEDS: CEFEPIME 2 GM in D5W 100 ML IV SCH (21:25)
[2023-01-06] VITALS (32 sets, daily range): BP systolic 88–133; PULSE 75–90; RESP 12–25; TEMP 97.8–98.7; O2SAT 92–98
[2023-01-06] MEDS: ALBUTEROL SULFATE 0.083% 2.5 MG/3 ML VIAL.NEB INH SCH ×7 (00:54→23:15)
[2023-01-06] MEDS: PROPOFOL DRIP 100 ML IV PRN ×7 (03:02→21:00)
[2023-01-06] MEDS: FENTANYL CITRATE-0.9 % NACL/PF 100 ML IV PRN ×4 (04:34→22:05)
[2023-01-06 04:56] LABS: ERYTHROCYTE SEDIMENTATION RATE 20 MM/HR (0-15)
[2023-01-06 05:00] LABS: BASOPHILS % (AUTO) 0.1 % (0.0-2.0); EOSINOPHILS % (AUTO) 0.1 % (0.0-4.0); HEMATOCRIT 22.4 % (36-54); HEMOGLOBIN 7.1 g/dL (14.0-18.0); LYMPHOCYTES # (AUTO) 0.5 K/uL (1.0-5.5); LYMPHOCYTES % (AUTO) 7.7 % (20.5-51.5); MEAN CORPUSCULAR HEMOGLOBIN 29 pg (27-31); MEAN CORPUSCULAR HGB CONC 32 % (32-36); MEAN CORPUSCULAR VOLUME 92 fL (79.0-98.0); MONOCYTES # (AUTO) 0.7 K/uL (0.0-1.0); MONOCYTES % (AUTO) 10.8 % (1.7-9.3); NEUTROPHILS # (AUTO) 4.9 K/uL (1.8-7.7); NEUTROPHILS % (AUTO) 81.3 % (40.0-70.0); PLATELET COUNT (AUTO) 159 K/uL (130-430); RED BLOOD CELL COUNT(AUTO) 2.43 MIL/uL (4.2-6.2); RED CELL DISTRIBUTION WIDTH 22.1 % (9.0-15.0); WHITE BLOOD COUNT (AUTO) 6.1 K/uL (4.8-10.8)
[2023-01-06 05:23] LABS: CREATININE 0.81 mg/dL (0.55-1.30); POTASSIUM 4.9 mmol/L (3.5-5.1)
[2023-01-06] MEDS: LR 1,000 ML IV SCH ×2 (06:20→23:54)
[2023-01-06] MEDS: SULFAMETHOXAZOLE /TRIMETHOPRIM 30 ML in D5W 500 ML IV SCH ×3 (06:30→21:23)
[2023-01-06] MEDS: NORMAL SALINE 5 ML DISP.SYRIN IVF SCH ×3 (06:43→21:24)
[2023-01-06] MEDS: QUEtiapine FUMARATE 100 MG TABLET PO SCH ×3 (08:20→21:23)
[2023-01-06] MEDS: LEVOTHYROXINE SODIUM 0.125 MG TABLET PO SCH (08:20)
[2023-01-06] MEDS: FAMOTIDINE 20 MG TABLET PO SCH (08:20)
[2023-01-06] MEDS: SERTRALINE HCL 50 MG TABLET PO SCH (08:20)
[2023-01-06] MEDS: ENOXAPARIN SODIUM 40 MG/0.4 ML SYRINGE SUBCUT SCH (08:21)
[2023-01-06] MEDS: CEFEPIME 2 GM in D5W 100 ML IV SCH ×2 (08:21→20:51)
[2023-01-06] MEDS: METHYLPREDNISOLONE SOD SUCC 40 MG/ML VIAL IVP SCH ×2 (08:24→20:51)
[2023-01-06] MEDS: LORazepam 2 MG/ML VIAL IVP PRN (08:24)
[2023-01-06] MEDS ORDERED: LIDOCAINE 1% 10 MG/ML, 20 ML MDV INJ ONE (08:30)
[2023-01-06] MEDS ORDERED: MIDAZOLAM HCL 5 MG/5 ML VIAL ONE (08:39)
[2023-01-06] MEDS ORDERED: fentaNYL CITRATE/PF 100 MCG/2 ML AMP ONE (08:39)
[2023-01-06] MEDS ORDERED: MIDAZOLAM IN NACL,ISO-OSMOT/PF 100 ML IV ONE (08:40)
[2023-01-06] MEDS ORDERED: LIDOCAINE MPF 2% 20 MG/1 ML, 5 ML VIAL INH ONE ×2 (08:45→09:45)
[2023-01-06] MEDS ORDERED: MIDAZOLAM HCL 5 MG/5 ML VIAL IVP ONE (09:15)
[2023-01-06] MEDS ORDERED: fentaNYL CITRATE/PF 100 MCG/2 ML AMP IVP ONE (09:15)
[2023-01-06] MEDS: MIDAZOLAM IN NACL,ISO-OSMOT/PF 100 ML IV PRN ×2 (09:40→18:11)
[2023-01-06] MEDS ORDERED: NS 500 ML IV ONE (09:45)
[2023-01-06] MEDS ORDERED: CALCIUM GLUCONATE 2 GM in NS 100 ML IV ONE (11:00)
[2023-01-06] MEDS: MICAFUNGIN SODIUM 100 MG in NS 100 ML IV SCH (13:21)
[2023-01-06] MEDS: AZITHROMYCIN 500 MG in NS 250 ML IV SCH (16:28)
[2023-01-06] MEDS: INSULIN REGULAR, HUMAN 100 UNITS/ML, 3 ML VIAL (humuLIN R) SUBCUT PRN (17:45)
[2023-01-06] MEDS: ATORVASTATIN 20 MG TABLET PO SCH (21:23)
[2023-01-07] VITALS (33 sets, daily range): BP systolic 71–147; PULSE 74–115; RESP 10–22; TEMP 98–99.5; O2SAT 93–97
[2023-01-07] MEDS: PROPOFOL DRIP 100 ML IV PRN ×7 (00:36→22:42)
[2023-01-07] MEDS: ALBUTEROL SULFATE 0.083% 2.5 MG/3 ML VIAL.NEB INH SCH ×6 (03:11→23:01)
[2023-01-07] MEDS: FENTANYL CITRATE-0.9 % NACL/PF 100 ML IV PRN ×4 (03:49→20:32)
[2023-01-07 05:30] LABS: BASOPHILS % (AUTO) 0.3 % (0.0-2.0); HEMOGLOBIN 7.5 g/dL (14.0-18.0); LYMPHOCYTES # (AUTO) 0.5 K/uL (1.0-5.5); LYMPHOCYTES % (AUTO) 5.6 % (20.5-51.5); MEAN CORPUSCULAR HEMOGLOBIN 29 pg (27-31); MEAN CORPUSCULAR HGB CONC 31 % (32-36); MEAN CORPUSCULAR VOLUME 94 fL (79.0-98.0); MONOCYTES # (AUTO) 0.6 K/uL (0.0-1.0); MONOCYTES % (AUTO) 7.1 % (1.7-9.3); NEUTROPHILS # (AUTO) 7.1 K/uL (1.8-7.7); PLATELET COUNT (AUTO) 152 K/uL (130-430); RED BLOOD CELL COUNT(AUTO) 2.55 MIL/uL (4.2-6.2); WHITE BLOOD COUNT (AUTO) 8.1 K/uL (4.8-10.8)
[2023-01-07 05:40] LABS: ERYTHROCYTE SEDIMENTATION RATE 18 MM/HR (0-15)
[2023-01-07] MEDS: SULFAMETHOXAZOLE /TRIMETHOPRIM 30 ML in D5W 500 ML IV SCH ×3 (05:44→22:43)
[2023-01-07] MEDS: NORMAL SALINE 5 ML DISP.SYRIN IVF SCH ×3 (05:45→22:43)
[2023-01-07 05:51] LABS: ALBUMIN 1.7 g/dL (3.4-4.8); CREATININE 0.71 mg/dL (0.55-1.30); POTASSIUM 5.7 mmol/L (3.5-5.1); TOTAL BILIRUBIN 0.2 mg/dL (0.0-1.0); TOTAL PROTEIN, SERUM 5.4 g/dL (6.4-8.3)
[2023-01-07] MEDS: MIDAZOLAM IN NACL,ISO-OSMOT/PF 100 ML IV PRN ×2 (05:52→14:17)
[2023-01-07 06:00] LABS: CALCIUM 6.4 mg/dL (8.4-11.0)
[2023-01-07] MEDS: QUEtiapine FUMARATE 100 MG TABLET PO SCH ×3 (08:28→21:13)
[2023-01-07] MEDS: LEVOTHYROXINE SODIUM 0.125 MG TABLET PO SCH (08:28)
[2023-01-07] MEDS: SERTRALINE HCL 50 MG TABLET PO SCH (08:28)
[2023-01-07] MEDS: FAMOTIDINE 20 MG TABLET PO SCH (08:28)
[2023-01-07] MEDS: ENOXAPARIN SODIUM 40 MG/0.4 ML SYRINGE SUBCUT SCH (08:29)
[2023-01-07] MEDS: METHYLPREDNISOLONE SOD SUCC 40 MG/ML VIAL IVP SCH ×2 (08:34→21:13)
[2023-01-07] MEDS: CEFEPIME 2 GM in D5W 100 ML IV SCH ×2 (08:35→21:16)
[2023-01-07] MEDS ORDERED: NS 500 ML IV ONE (10:00)
[2023-01-07] MEDS ORDERED: DEXTROSE 50% JECT 50 ML DISP.SYRIN IVP ONE (10:00)
[2023-01-07] MEDS ORDERED: INSULIN REGULAR, HUMAN 10 UNITS/0.1 ML, 3 ML VIAL IVP ONE (10:00)
[2023-01-07] MEDS ORDERED: MINERAL OIL 133 ML ENEMA RC ONE (10:00)
[2023-01-07] MEDS ORDERED: FUROSEMIDE 20 MG/2 ML VIAL IVP ONE (10:00)
[2023-01-07] MEDS ORDERED: SODIUM BICARBONATE 8.4% JECT 50 MEQ/50 ML SYRINGE IVP ONE (10:00)
[2023-01-07] MEDS ORDERED: CALCIUM GLUCONATE 1 GM in NS 100 ML IV ONE (10:00)
[2023-01-07] MEDS: METOCLOPRAMIDE HCL 10 MG/2 ML VIAL IVP SCH ×2 (10:46→17:32)
[2023-01-07] MEDS ORDERED: CALCIUM GLUCONATE 2 GM in NS 100 ML IV ONE (11:00)
[2023-01-07] MEDS: MICAFUNGIN SODIUM 100 MG in NS 100 ML IV SCH (13:29)
[2023-01-07 13:53] LABS: CREATININE 0.72 mg/dL (0.55-1.30)
[2023-01-07 14:00] LABS: CALCIUM 6.8 mg/dL (8.4-11.0)
[2023-01-07] MEDS: NACL 0.9% 1,000 ML IV SCH (14:10)
[2023-01-07] MEDS: AZITHROMYCIN 500 MG in NS 250 ML IV SCH (17:32)
[2023-01-07] MEDS: INSULIN REGULAR, HUMAN 100 UNITS/ML, 3 ML VIAL (humuLIN R) SUBCUT PRN (17:46)
[2023-01-07] MEDS: ATORVASTATIN 20 MG TABLET PO SCH (21:13)
[2023-01-08] VITALS (35 sets, daily range): BP systolic 95–139; PULSE 77–101; RESP 7–22; TEMP 97.4–98.2; O2SAT 91–99
[2023-01-08] MEDS: MIDAZOLAM IN NACL,ISO-OSMOT/PF 100 ML IV PRN ×2 (00:08→20:26)
[2023-01-08] MEDS: PROPOFOL DRIP 100 ML IV PRN ×4 (01:47→20:19)
[2023-01-08] MEDS: METOCLOPRAMIDE HCL 10 MG/2 ML VIAL IVP SCH ×3 (01:50→18:31)
[2023-01-08] MEDS: ALBUTEROL SULFATE 0.083% 2.5 MG/3 ML VIAL.NEB INH SCH ×6 (02:45→23:24)
[2023-01-08] MEDS: FENTANYL CITRATE-0.9 % NACL/PF 100 ML IV PRN ×3 (03:09→18:33)
[2023-01-08 04:54] LABS: BASOPHILS % (AUTO) 0.4 % (0.0-2.0); EOSINOPHILS % (AUTO) 0.1 % (0.0-4.0); HEMATOCRIT 23.1 % (36-54); HEMOGLOBIN 7.2 g/dL (14.0-18.0); LYMPHOCYTES # (AUTO) 0.4 K/uL (1.0-5.5); LYMPHOCYTES % (AUTO) 5.3 % (20.5-51.5); MEAN CORPUSCULAR HEMOGLOBIN 29 pg (27-31); MEAN CORPUSCULAR HGB CONC 31 % (32-36); MEAN CORPUSCULAR VOLUME 94 fL (79.0-98.0); MONOCYTES # (AUTO) 0.6 K/uL (0.0-1.0); MONOCYTES % (AUTO) 6.9 % (1.7-9.3); NEUTROPHILS % (AUTO) 87.3 % (40.0-70.0); PLATELET COUNT (AUTO) 146 K/uL (130-430); RED BLOOD CELL COUNT(AUTO) 2.47 MIL/uL (4.2-6.2); RED CELL DISTRIBUTION WIDTH 23.2 % (9.0-15.0); WHITE BLOOD COUNT (AUTO) 8.1 K/uL (4.8-10.8)
[2023-01-08 05:06] LABS: CREATININE 0.78 mg/dL (0.55-1.30); POTASSIUM 5.7 mmol/L (3.5-5.1)
[2023-01-08 05:15] LABS: CALCIUM 6.5 mg/dL (8.4-11.0)
[2023-01-08 05:24] LABS: ERYTHROCYTE SEDIMENTATION RATE 23 MM/HR (0-15)
[2023-01-08] MEDS: NORMAL SALINE 5 ML DISP.SYRIN IVF SCH ×3 (06:10→23:09)
[2023-01-08] MEDS: SULFAMETHOXAZOLE /TRIMETHOPRIM 30 ML in D5W 500 ML IV SCH ×3 (06:10→23:09)
[2023-01-08] MEDS ORDERED: CALCIUM GLUCONATE 2 GM in NS 100 ML IV ONE (06:15)
[2023-01-08] MEDS: LEVOTHYROXINE SODIUM 0.125 MG TABLET PO SCH (08:39)
[2023-01-08] MEDS: SERTRALINE HCL 50 MG TABLET PO SCH (08:39)
[2023-01-08] MEDS: QUEtiapine FUMARATE 100 MG TABLET PO SCH ×3 (08:39→21:06)
[2023-01-08] MEDS: FAMOTIDINE 20 MG TABLET PO SCH (08:39)
[2023-01-08] MEDS: NACL 0.9% 1,000 ML IV SCH (08:40)
[2023-01-08] MEDS: CEFEPIME 2 GM in D5W 100 ML IV SCH ×2 (08:40→21:06)
[2023-01-08] MEDS: METHYLPREDNISOLONE SOD SUCC 40 MG/ML VIAL IVP SCH ×2 (08:40→21:07)
[2023-01-08] MEDS: ENOXAPARIN SODIUM 40 MG/0.4 ML SYRINGE SUBCUT SCH (08:41)
[2023-01-08] MEDS ORDERED: POLYETHYLENE GLYCOL 3350, 17 GM/ POWD.PACK PO ONE (10:00)
[2023-01-08] MEDS ORDERED: MINERAL OIL 30 ML UDC PO ONE (10:00)
[2023-01-08] MEDS ORDERED: SODIUM ZIRCONIUM CYCLOSILICATE 10 GM POWD.PACK PO ONE (11:45)
[2023-01-08] MEDS: MICAFUNGIN SODIUM 100 MG in NS 100 ML IV SCH (12:19)
[2023-01-08] MEDS: IPRATROPIUM BROM 0.5 MG/2.5 ML VIAL.NEB (ATROVENT) INH PRN ×3 (16:05→23:24)
[2023-01-08] MEDS: AZITHROMYCIN 500 MG in NS 250 ML IV SCH (18:30)
[2023-01-08] MEDS: POLYETHYLENE GLYCOL 3350, 17 GM/ POWD.PACK PO SCH (21:06)
[2023-01-08] MEDS: ATORVASTATIN 20 MG TABLET PO SCH (21:07)
[2023-01-09] VITALS (33 sets, daily range): BP systolic 93–147; PULSE 84–136; RESP 9–34; TEMP 96.9–98.5; O2SAT 90–97
[2023-01-09] MEDS: FENTANYL CITRATE-0.9 % NACL/PF 100 ML IV PRN ×2 (00:03→06:26)
[2023-01-09] MEDS: PROPOFOL DRIP 100 ML IV PRN ×4 (01:15→23:10)
[2023-01-09] MEDS: METOCLOPRAMIDE HCL 10 MG/2 ML VIAL IVP SCH ×3 (02:18→17:54)
[2023-01-09] MEDS: IPRATROPIUM BROM 0.5 MG/2.5 ML VIAL.NEB (ATROVENT) INH PRN ×6 (03:06→23:06)
[2023-01-09] MEDS: ALBUTEROL SULFATE 0.083% 2.5 MG/3 ML VIAL.NEB INH SCH ×6 (03:06→23:06)
[2023-01-09] MEDS: NACL 0.9% 1,000 ML IV SCH (05:00)
[2023-01-09 05:08] LABS: ERYTHROCYTE SEDIMENTATION RATE 47 MM/HR (0-15)
[2023-01-09 05:21] LABS: BASOPHILS % (AUTO) 0.2 % (0.0-2.0); EOSINOPHILS % (AUTO) 0.2 % (0.0-4.0); HEMATOCRIT 24.4 % (36-54); HEMOGLOBIN 7.6 g/dL (14.0-18.0); LYMPHOCYTES # (AUTO) 0.5 K/uL (1.0-5.5); LYMPHOCYTES % (AUTO) 5.3 % (20.5-51.5); MEAN CORPUSCULAR HEMOGLOBIN 29 pg (27-31); MEAN CORPUSCULAR HGB CONC 31 % (32-36); MEAN CORPUSCULAR VOLUME 94 fL (79.0-98.0); MONOCYTES # (AUTO) 0.6 K/uL (0.0-1.0); MONOCYTES % (AUTO) 6.7 % (1.7-9.3); NEUTROPHILS % (AUTO) 87.6 % (40.0-70.0); PLATELET COUNT (AUTO) 141 K/uL (130-430); RED CELL DISTRIBUTION WIDTH 22.6 % (9.0-15.0); WHITE BLOOD COUNT (AUTO) 9.1 K/uL (4.8-10.8)
[2023-01-09] MEDS: SULFAMETHOXAZOLE /TRIMETHOPRIM 30 ML in D5W 500 ML IV SCH (05:55)
[2023-01-09] MEDS: NORMAL SALINE 5 ML DISP.SYRIN IVF SCH ×3 (05:56→22:00)
[2023-01-09 06:27] LABS: ALBUMIN 1.6 g/dL (3.4-4.8); CREATININE 0.7 mg/dL (0.55-1.30); PHOSPHORUS 4.1 mg/dL (2.7-4.5); POTASSIUM 5.7 mmol/L (3.5-5.1); TOTAL BILIRUBIN 0.1 mg/dL (0.0-1.0); TOTAL PROTEIN, SERUM 5.4 g/dL (6.4-8.3)
[2023-01-09 06:47] LABS: CALCIUM 6.9 mg/dL (8.4-11.0)
[2023-01-09] MEDS ORDERED: CALCIUM GLUCONATE 2 GM in NS 80 ML IV ONE (07:15)
[2023-01-09] MEDS ORDERED: QUEtiapine FUMARATE 100 MG TABLET PO ONE (09:45)
[2023-01-09] MEDS ORDERED: SODIUM ZIRCONIUM CYCLOSILICATE 10 GM POWD.PACK PO ONE (10:00)
[2023-01-09] MEDS: POLYETHYLENE GLYCOL 3350, 17 GM/ POWD.PACK PO SCH ×2 (10:13→20:21)
[2023-01-09] MEDS: METHYLPREDNISOLONE SOD SUCC 40 MG/ML VIAL IVP SCH ×2 (10:13→20:32)
[2023-01-09] MEDS: MINERAL OIL 30 ML UDC PO SCH (10:14)
[2023-01-09] MEDS: FAMOTIDINE 20 MG TABLET PO SCH (10:14)
[2023-01-09] MEDS: SERTRALINE HCL 50 MG TABLET PO SCH (10:14)
[2023-01-09] MEDS: LEVOTHYROXINE SODIUM 0.125 MG TABLET PO SCH (10:14)
[2023-01-09] MEDS ORDERED: MEROPENEM 1 GM IVPB PREMIX 50 ML IV ONE (10:15)
[2023-01-09] MEDS: ENOXAPARIN SODIUM 40 MG/0.4 ML SYRINGE SUBCUT SCH (10:15)
[2023-01-09] MEDS: MEROPENEM 1 GM IVPB PREMIX 50 ML IV SCH ×2 (12:56→21:48)
[2023-01-09] MEDS: MIDAZOLAM IN NACL,ISO-OSMOT/PF 100 ML IV PRN ×2 (12:58→23:08)
[2023-01-09] MEDS: MICAFUNGIN SODIUM 100 MG in NS 100 ML IV SCH (13:19)
[2023-01-09] MEDS: QUEtiapine FUMARATE 100 MG TABLET PO SCH ×2 (15:28→20:21)
[2023-01-09 16:26] LABS: CREATININE 0.7 mg/dL (0.55-1.30); POTASSIUM 5.6 mmol/L (3.5-5.1)
[2023-01-09 16:37] LABS: CALCIUM 6.8 mg/dL (8.4-11.0)
[2023-01-09] MEDS: ATORVASTATIN 20 MG TABLET PO SCH (20:21)
[2023-01-10] VITALS (36 sets, daily range): BP systolic 84–178; PULSE 82–142; RESP 22–36; TEMP 97.7–98.5; O2SAT 90–97
[2023-01-10] MEDS: METOCLOPRAMIDE HCL 10 MG/2 ML VIAL IVP SCH ×3 (02:00→18:50)
[2023-01-10] MEDS: NACL 0.9% 1,000 ML IV SCH ×2 (02:01→13:29)
[2023-01-10] MEDS: ALBUTEROL SULFATE 0.083% 2.5 MG/3 ML VIAL.NEB INH SCH ×5 (03:06→23:29)
[2023-01-10] MEDS: IPRATROPIUM BROM 0.5 MG/2.5 ML VIAL.NEB (ATROVENT) INH PRN ×2 (03:07→11:21)
[2023-01-10 05:54] LABS: BASOPHILS % (AUTO) 0.5 % (0.0-2.0); EOSINOPHILS % (AUTO) 0.2 % (0.0-4.0); HEMATOCRIT 24.4 % (36-54); HEMOGLOBIN 7.6 g/dL (14.0-18.0); LYMPHOCYTES # (AUTO) 0.6 K/uL (1.0-5.5); LYMPHOCYTES % (AUTO) 6.7 % (20.5-51.5); MEAN CORPUSCULAR HEMOGLOBIN 29 pg (27-31); MEAN CORPUSCULAR HGB CONC 31 % (32-36); MEAN CORPUSCULAR VOLUME 93 fL (79.0-98.0); MONOCYTES # (AUTO) 0.5 K/uL (0.0-1.0); MONOCYTES % (AUTO) 5.7 % (1.7-9.3); NEUTROPHILS # (AUTO) 7.7 K/uL (1.8-7.7); NEUTROPHILS % (AUTO) 86.9 % (40.0-70.0); PLATELET COUNT (AUTO) 131 K/uL (130-430); RED BLOOD CELL COUNT(AUTO) 2.62 MIL/uL (4.2-6.2); WHITE BLOOD COUNT (AUTO) 8.8 K/uL (4.8-10.8)
[2023-01-10] MEDS: NORMAL SALINE 5 ML DISP.SYRIN IVF SCH ×3 (06:00→22:00)
[2023-01-10 06:01] LABS: CREATININE 0.65 mg/dL (0.55-1.30); POTASSIUM 5.4 mmol/L (3.5-5.1)
[2023-01-10 06:25] LABS: ERYTHROCYTE SEDIMENTATION RATE 47 MM/HR (0-15)
[2023-01-10] MEDS: MEROPENEM 1 GM IVPB PREMIX 50 ML IV SCH ×3 (06:45→22:12)
[2023-01-10] MEDS: PROPOFOL DRIP 100 ML IV PRN ×2 (09:30→21:35)
[2023-01-10] MEDS: MIDAZOLAM IN NACL,ISO-OSMOT/PF 100 ML IV PRN (09:43)
[2023-01-10] MEDS: MINERAL OIL 30 ML UDC PO SCH (10:59)
[2023-01-10] MEDS: METHYLPREDNISOLONE SOD SUCC 40 MG/ML VIAL IVP SCH ×2 (10:59→22:10)
[2023-01-10] MEDS: SULFAMET 800MG/TMP 160MG, 20 ML UDBTL GT SCH (11:00)
[2023-01-10] MEDS: ENOXAPARIN SODIUM 40 MG/0.4 ML SYRINGE SUBCUT SCH (11:14)
[2023-01-10] MEDS: SERTRALINE HCL 50 MG TABLET PO SCH (11:15)
[2023-01-10] MEDS: QUEtiapine FUMARATE 100 MG TABLET PO SCH ×3 (11:15→22:11)
[2023-01-10] MEDS: FAMOTIDINE 20 MG TABLET PO SCH (11:15)
[2023-01-10] MEDS: LEVOTHYROXINE SODIUM 0.125 MG TABLET PO SCH (11:15)
[2023-01-10] MEDS: POLYETHYLENE GLYCOL 3350, 17 GM/ POWD.PACK PO SCH ×2 (11:16→22:11)
[2023-01-10] MEDS: SODIUM POLYSTYRENE SULFONATE 15 GM/60 ML UDBTL NG PRN (12:34)
[2023-01-10] MEDS ORDERED: NOREPINEPHRINE 4 MG/4 ML VIAL IV ONE (12:51)
[2023-01-10] MEDS: MICAFUNGIN SODIUM 100 MG in NS 100 ML IV SCH (13:32)
[2023-01-10] MEDS: ATORVASTATIN 20 MG TABLET PO SCH (22:11)
[2023-01-11] VITALS (34 sets, daily range): BP systolic 88–136; PULSE 73–134; RESP 22–35; TEMP 98–101.1; O2SAT 93–99
[2023-01-11] MEDS: METOCLOPRAMIDE HCL 10 MG/2 ML VIAL IVP SCH ×3 (02:00→18:34)
[2023-01-11] MEDS: ALBUTEROL SULFATE 0.083% 2.5 MG/3 ML VIAL.NEB INH SCH ×6 (04:45→23:44)
[2023-01-11] MEDS: FENTANYL CITRATE-0.9 % NACL/PF 100 ML IV PRN (05:20)
[2023-01-11] MEDS: INSULIN REGULAR, HUMAN 100 UNITS/ML, 3 ML VIAL (humuLIN R) SUBCUT PRN ×2 (05:25→19:37)
[2023-01-11] MEDS: MEROPENEM 1 GM IVPB PREMIX 50 ML IV SCH ×3 (06:00→22:47)
[2023-01-11] MEDS: NORMAL SALINE 5 ML DISP.SYRIN IVF SCH ×3 (06:00→22:48)
[2023-01-11 06:06] LABS: BASOPHILS % (AUTO) 0.2 % (0.0-2.0); EOSINOPHILS % (AUTO) 0.2 % (0.0-4.0); HEMATOCRIT 25.5 % (36-54); HEMOGLOBIN 7.9 g/dL (14.0-18.0); LYMPHOCYTES # (AUTO) 0.4 K/uL (1.0-5.5); LYMPHOCYTES % (AUTO) 4.4 % (20.5-51.5); MEAN CORPUSCULAR HEMOGLOBIN 29 pg (27-31); MEAN CORPUSCULAR HGB CONC 31 % (32-36); MEAN CORPUSCULAR VOLUME 94 fL (79.0-98.0); MONOCYTES # (AUTO) 0.5 K/uL (0.0-1.0); MONOCYTES % (AUTO) 5.4 % (1.7-9.3); NEUTROPHILS # (AUTO) 8.3 K/uL (1.8-7.7); NEUTROPHILS % (AUTO) 89.8 % (40.0-70.0); PLATELET COUNT (AUTO) 130 K/uL (130-430); RED BLOOD CELL COUNT(AUTO) 2.72 MIL/uL (4.2-6.2); WHITE BLOOD COUNT (AUTO) 9.2 K/uL (4.8-10.8)
[2023-01-11 06:18] LABS: CALCIUM 7.1 mg/dL (8.4-11.0); CREATININE 0.64 mg/dL (0.55-1.30); POTASSIUM 4.8 mmol/L (3.5-5.1)
[2023-01-11 07:05] LABS: ERYTHROCYTE SEDIMENTATION RATE 48 MM/HR (0-15)
[2023-01-11 09:08] LABS: ABG O2 SAT% ESTIMATE 95.4 % (94.0-100.0); BLOOD GAS BASE EXCESS 1.2 mmol/L (-3.0-3.0); BLOOD GAS HCO3 23.7 mmol/L (21.0-27.0); BLOOD GAS PCO2 31.9 mmHg (32.0-45.0); BLOOD GAS PH 7.489 (7.350-7.450)
[2023-01-11 09:14] LABS: ALLEN'S TEST POSITIVE (P)
[2023-01-11] MEDS: ENOXAPARIN SODIUM 40 MG/0.4 ML SYRINGE SUBCUT SCH (09:29)
[2023-01-11] MEDS: SULFAMET 800MG/TMP 160MG, 20 ML UDBTL GT SCH (09:29)
[2023-01-11] MEDS: MINERAL OIL 30 ML UDC PO SCH (09:29)
[2023-01-11] MEDS: FAMOTIDINE 20 MG TABLET PO SCH (09:29)
[2023-01-11] MEDS: POLYETHYLENE GLYCOL 3350, 17 GM/ POWD.PACK PO SCH ×2 (09:31→21:00)
[2023-01-11] MEDS: SERTRALINE HCL 50 MG TABLET PO SCH (09:31)
[2023-01-11] MEDS: LEVOTHYROXINE SODIUM 0.125 MG TABLET PO SCH (09:31)
[2023-01-11] MEDS: METHYLPREDNISOLONE SOD SUCC 40 MG/ML VIAL IVP SCH (09:31)
[2023-01-11] MEDS: QUEtiapine FUMARATE 100 MG TABLET PO SCH ×3 (09:31→22:47)
[2023-01-11] MEDS: PROPOFOL DRIP 100 ML IV PRN ×2 (11:56→23:46)
[2023-01-11] MEDS: MICAFUNGIN SODIUM 100 MG in NS 100 ML IV SCH (13:53)
[2023-01-11] MEDS: MIDAZOLAM IN NACL,ISO-OSMOT/PF 100 ML IV PRN (13:57)
[2023-01-11] MEDS: NACL 0.9% 1,000 ML IV SCH (18:35)
[2023-01-11] MEDS: IPRATROPIUM BROM 0.5 MG/2.5 ML VIAL.NEB (ATROVENT) INH PRN ×2 (19:43→23:45)
[2023-01-11] MEDS: ATORVASTATIN 20 MG TABLET PO SCH (22:48)
[2023-01-12] VITALS (36 sets, daily range): BP systolic 79–125; PULSE 85–118; RESP 22–33; TEMP 98.3–100.1; O2SAT 90–99
[2023-01-12] MEDS: METHYLPREDNISOLONE SOD SUCC 40 MG/ML VIAL IVP SCH ×3 (00:08→21:27)
[2023-01-12] MEDS: MIDAZOLAM IN NACL,ISO-OSMOT/PF 100 ML IV PRN ×2 (00:50→11:00)
[2023-01-12] MEDS: METOCLOPRAMIDE HCL 10 MG/2 ML VIAL IVP SCH ×3 (02:00→17:29)
[2023-01-12 04:25] LABS: ERYTHROCYTE SEDIMENTATION RATE 45 MM/HR (0-15)
[2023-01-12 04:36] LABS: BASOPHILS % (AUTO) 0.4 % (0.0-2.0); HEMATOCRIT 22.7 % (36-54); LYMPHOCYTES # (AUTO) 0.5 K/uL (1.0-5.5); MEAN CORPUSCULAR HEMOGLOBIN 29 pg (27-31); MEAN CORPUSCULAR HGB CONC 31 % (32-36); MEAN CORPUSCULAR VOLUME 94 fL (79.0-98.0); MONOCYTES # (AUTO) 0.5 K/uL (0.0-1.0); MONOCYTES % (AUTO) 5.5 % (1.7-9.3); NEUTROPHILS # (AUTO) 8.3 K/uL (1.8-7.7); NEUTROPHILS % (AUTO) 89.1 % (40.0-70.0); PLATELET COUNT (AUTO) 117 K/uL (130-430); RED BLOOD CELL COUNT(AUTO) 2.43 MIL/uL (4.2-6.2); RED CELL DISTRIBUTION WIDTH 22.4 % (9.0-15.0); WHITE BLOOD COUNT (AUTO) 9.3 K/uL (4.8-10.8)
[2023-01-12 04:59] LABS: ALBUMIN 1.5 g/dL (3.4-4.8); CALCIUM 7.1 mg/dL (8.4-11.0); CREATININE 0.55 mg/dL (0.55-1.30); PHOSPHORUS 4.1 mg/dL (2.7-4.5); POTASSIUM 4.8 mmol/L (3.5-5.1); TOTAL BILIRUBIN 0.3 mg/dL (0.0-1.0); TOTAL PROTEIN, SERUM 5.2 g/dL (6.4-8.3)
[2023-01-12] MEDS: ALBUTEROL SULFATE 0.083% 2.5 MG/3 ML VIAL.NEB INH SCH ×6 (05:12→22:53)
[2023-01-12] MEDS: IPRATROPIUM BROM 0.5 MG/2.5 ML VIAL.NEB (ATROVENT) INH PRN ×4 (05:12→15:23)
[2023-01-12] MEDS: NORMAL SALINE 5 ML DISP.SYRIN IVF SCH ×3 (05:37→21:29)
[2023-01-12] MEDS: MEROPENEM 1 GM IVPB PREMIX 50 ML IV SCH ×3 (05:43→21:29)
[2023-01-12] MEDS: SERTRALINE HCL 50 MG TABLET PO SCH (08:24)
[2023-01-12] MEDS: SULFAMET 800MG/TMP 160MG, 20 ML UDBTL GT SCH (08:24)
[2023-01-12] MEDS: FAMOTIDINE 20 MG TABLET PO SCH (08:25)
[2023-01-12] MEDS: QUEtiapine FUMARATE 100 MG TABLET PO SCH ×3 (08:25→21:28)
[2023-01-12] MEDS: ENOXAPARIN SODIUM 40 MG/0.4 ML SYRINGE SUBCUT SCH (08:27)
[2023-01-12] MEDS: POLYETHYLENE GLYCOL 3350, 17 GM/ POWD.PACK PO SCH ×2 (08:31→21:28)
[2023-01-12] MEDS: MINERAL OIL 30 ML UDC PO SCH (08:31)
[2023-01-12] MEDS: LEVOTHYROXINE SODIUM 0.125 MG TABLET PO SCH (10:02)
[2023-01-12] MEDS ORDERED: MORPHINE 2 MG/ML INJ. SYRINGE IVP ONE (10:15)
[2023-01-12] MEDS ORDERED: CALCIUM GLUCONATE 2 GM in NS 100 ML IV ONE (10:30)
[2023-01-12] MEDS ORDERED: FUROSEMIDE 40 MG/4 ML VIAL IVP ONE (10:45)
[2023-01-12] MEDS: NACL 0.9% 1,000 ML IV SCH (12:05)
[2023-01-12] MEDS: MICAFUNGIN SODIUM 100 MG in NS 100 ML IV SCH (12:07)
[2023-01-12] MEDS: PROPOFOL DRIP 100 ML IV PRN (14:10)
[2023-01-12] MEDS: ATORVASTATIN 20 MG TABLET PO SCH (21:28)
[2023-01-13] VITALS (36 sets, daily range): BP systolic 95–127; PULSE 82–153; RESP 22–32; TEMP 98.7–101.2; O2SAT 93–100
[2023-01-13] MEDS: METOCLOPRAMIDE HCL 10 MG/2 ML VIAL IVP SCH ×3 (01:46→18:24)
[2023-01-13] MEDS: ALBUTEROL SULFATE 0.083% 2.5 MG/3 ML VIAL.NEB INH SCH ×5 (03:21→23:46)
[2023-01-13 05:13] LABS: BASOPHILS % (AUTO) 0.3 % (0.0-2.0); HEMATOCRIT 22.6 % (36-54); LYMPHOCYTES # (AUTO) 0.3 K/uL (1.0-5.5); MEAN CORPUSCULAR HEMOGLOBIN 29 pg (27-31); MEAN CORPUSCULAR HGB CONC 31 % (32-36); MEAN CORPUSCULAR VOLUME 94 fL (79.0-98.0); MONOCYTES # (AUTO) 0.5 K/uL (0.0-1.0); MONOCYTES % (AUTO) 5.7 % (1.7-9.3); NEUTROPHILS # (AUTO) 7.5 K/uL (1.8-7.7); PLATELET COUNT (AUTO) 115 K/uL (130-430); RED BLOOD CELL COUNT(AUTO) 2.41 MIL/uL (4.2-6.2); RED CELL DISTRIBUTION WIDTH 23.1 % (9.0-15.0); WHITE BLOOD COUNT (AUTO) 8.4 K/uL (4.8-10.8)
[2023-01-13 05:25] LABS: CALCIUM 7.3 mg/dL (8.4-11.0); CREATININE 0.54 mg/dL (0.55-1.30); POTASSIUM 5.2 mmol/L (3.5-5.1)
[2023-01-13] MEDS: NORMAL SALINE 5 ML DISP.SYRIN IVF SCH ×2 (06:00→14:02)
[2023-01-13 06:27] LABS: HEMOGLOBIN 6.9 g/dL (14.0-18.0)
[2023-01-13 06:57] LABS: ERYTHROCYTE SEDIMENTATION RATE 36 MM/HR (0-15)
[2023-01-13] MEDS: MEROPENEM 1 GM IVPB PREMIX 50 ML IV SCH ×3 (06:59→21:30)
[2023-01-13] MEDS: POLYETHYLENE GLYCOL 3350, 17 GM/ POWD.PACK PO SCH ×2 (09:00→21:29)
[2023-01-13] MEDS ORDERED: FUROSEMIDE 40 MG/4 ML VIAL IVP SCH (09:00)
[2023-01-13] MEDS: MINERAL OIL 30 ML UDC PO SCH (09:00)
[2023-01-13] MEDS: SODIUM POLYSTYRENE SULFONATE 15 GM/60 ML UDBTL NG PRN (09:58)
[2023-01-13] MEDS: SULFAMET 800MG/TMP 160MG, 20 ML UDBTL GT SCH (09:58)
[2023-01-13] MEDS: NACL 0.9% 1,000 ML IV SCH (09:59)
[2023-01-13] MEDS: LEVOTHYROXINE SODIUM 0.125 MG TABLET PO SCH (09:59)
[2023-01-13] MEDS: FAMOTIDINE 20 MG TABLET PO SCH (10:00)
[2023-01-13] MEDS: SERTRALINE HCL 50 MG TABLET PO SCH (10:00)
[2023-01-13] MEDS: ENOXAPARIN SODIUM 40 MG/0.4 ML SYRINGE SUBCUT SCH (10:00)
[2023-01-13] MEDS: QUEtiapine FUMARATE 100 MG TABLET PO SCH ×3 (10:00→21:30)
[2023-01-13] MEDS: METHYLPREDNISOLONE SOD SUCC 40 MG/ML VIAL IVP SCH (11:02)
[2023-01-13] MEDS ORDERED: ADENOSINE 6MG/2ML VIAL IVP ONE ×2 (12:45)
[2023-01-13] MEDS ORDERED: ADENOSINE 6MG/2ML VIAL ONE ×2 (12:46→12:50)
[2023-01-13] MEDS: MICAFUNGIN SODIUM 100 MG in NS 100 ML IV SCH (14:02)
[2023-01-13] MEDS: FUROSEMIDE 40 MG/4 ML VIAL IVP SCH (21:29)
[2023-01-13] MEDS: ATORVASTATIN 20 MG TABLET PO SCH (21:29)
[2023-01-14] VITALS (36 sets, daily range): BP systolic 90–128; PULSE 64–130; RESP 22–56; TEMP 97.3–99.8; O2SAT 92–98
[2023-01-14] MEDS: PROPOFOL DRIP 100 ML IV PRN ×3 (02:07→17:18)
[2023-01-14] MEDS: METOCLOPRAMIDE HCL 10 MG/2 ML VIAL IVP SCH ×3 (02:12→18:19)
[2023-01-14] MEDS: ALBUTEROL SULFATE 0.083% 2.5 MG/3 ML VIAL.NEB INH SCH ×4 (03:25→19:40)
[2023-01-14] MEDS: MIDAZOLAM IN NACL,ISO-OSMOT/PF 100 ML IV PRN ×2 (04:47→20:31)
[2023-01-14] MEDS: NORMAL SALINE 5 ML DISP.SYRIN IVF SCH ×4 (04:49→21:53)
[2023-01-14] MEDS: NACL 0.9% 1,000 ML IV SCH (04:51)
[2023-01-14] MEDS: MEROPENEM 1 GM IVPB PREMIX 50 ML IV SCH ×3 (05:06→21:51)
[2023-01-14 05:46] LABS: BASOPHILS % (AUTO) 0.6 % (0.0-2.0); EOSINOPHILS % (AUTO) 0.1 % (0.0-4.0); HEMATOCRIT 26.6 % (36-54); HEMOGLOBIN 8.4 g/dL (14.0-18.0); LYMPHOCYTES # (AUTO) 0.5 K/uL (1.0-5.5); LYMPHOCYTES % (AUTO) 5.8 % (20.5-51.5); MEAN CORPUSCULAR HEMOGLOBIN 29 pg (27-31); MEAN CORPUSCULAR HGB CONC 31 % (32-36); MEAN CORPUSCULAR VOLUME 93 fL (79.0-98.0); MONOCYTES # (AUTO) 0.4 K/uL (0.0-1.0); MONOCYTES % (AUTO) 4.7 % (1.7-9.3); NEUTROPHILS # (AUTO) 6.9 K/uL (1.8-7.7); NEUTROPHILS % (AUTO) 88.8 % (40.0-70.0); PLATELET COUNT (AUTO) 101 K/uL (130-430); RED BLOOD CELL COUNT(AUTO) 2.87 MIL/uL (4.2-6.2); RED CELL DISTRIBUTION WIDTH 21.4 % (9.0-15.0); WHITE BLOOD COUNT (AUTO) 7.8 K/uL (4.8-10.8)
[2023-01-14 06:02] LABS: ALBUMIN 1.5 g/dL (3.4-4.8); CALCIUM 7.3 mg/dL (8.4-11.0); CREATININE 0.67 mg/dL (0.55-1.30); PHOSPHORUS 4.4 mg/dL (2.7-4.5); POTASSIUM 4.2 mmol/L (3.5-5.1); TOTAL BILIRUBIN 0.4 mg/dL (0.0-1.0); TOTAL PROTEIN, SERUM 5.3 g/dL (6.4-8.3)
[2023-01-14 06:03] LABS: ERYTHROCYTE SEDIMENTATION RATE 46 MM/HR (0-15)
[2023-01-14] MEDS: FENTANYL CITRATE-0.9 % NACL/PF 100 ML IV PRN ×3 (08:00→19:47)
[2023-01-14] MEDS: FAMOTIDINE 20 MG TABLET PO SCH (09:39)
[2023-01-14] MEDS: FUROSEMIDE 40 MG/4 ML VIAL IVP SCH ×2 (09:39→21:49)
[2023-01-14] MEDS: POLYETHYLENE GLYCOL 3350, 17 GM/ POWD.PACK PO SCH ×2 (09:39→21:00)
[2023-01-14] MEDS: MINERAL OIL 30 ML UDC PO SCH (09:39)
[2023-01-14] MEDS: QUEtiapine FUMARATE 100 MG TABLET PO SCH ×3 (09:40→21:50)
[2023-01-14] MEDS: LEVOTHYROXINE SODIUM 0.125 MG TABLET PO SCH (09:40)
[2023-01-14] MEDS: SULFAMET 800MG/TMP 160MG, 20 ML UDBTL GT SCH (09:40)
[2023-01-14] MEDS: SERTRALINE HCL 50 MG TABLET PO SCH (09:40)
[2023-01-14] MEDS ORDERED: ENOXAPARIN SODIUM 40 MG/0.4 ML SYRINGE SUBCUT ONE (10:00)
[2023-01-14] MEDS ORDERED: NOREPINEPHRINE 4 MG/4 ML VIAL IV ONE (11:04)
[2023-01-14] MEDS: NOREPINEPHRINE BITARTRATE 4 MG in NS 246 ML IV PRN (11:36)
[2023-01-14] MEDS: INSULIN REGULAR, HUMAN 100 UNITS/ML, 3 ML VIAL (humuLIN R) SUBCUT PRN (19:16)
[2023-01-14] MEDS: ATORVASTATIN 20 MG TABLET PO SCH (21:49)
[2023-01-15] VITALS (49 sets, daily range): BP systolic 77–122; PULSE 88–121; RESP 22–31; TEMP 98.5–99.8; O2SAT 91–97
[2023-01-15] MEDS: PROPOFOL DRIP 100 ML IV PRN (00:01)
[2023-01-15] MEDS: FENTANYL CITRATE-0.9 % NACL/PF 100 ML IV PRN ×4 (00:02→19:11)
[2023-01-15] MEDS: NACL 0.9% 1,000 ML IV SCH ×2 (00:44→20:47)
[2023-01-15] MEDS: METOCLOPRAMIDE HCL 10 MG/2 ML VIAL IVP SCH ×3 (02:04→18:55)
[2023-01-15] MEDS: NOREPINEPHRINE BITARTRATE 4 MG in NS 246 ML IV PRN (04:01)
[2023-01-15 05:13] LABS: BASOPHILS # (AUTO) 0.1 K/uL (0.0-0.2); BASOPHILS % (AUTO) 0.7 % (0.0-2.0); EOSINOPHILS % (AUTO) 0.4 % (0.0-4.0); HEMOGLOBIN 8.3 g/dL (14.0-18.0); LYMPHOCYTES # (AUTO) 0.5 K/uL (1.0-5.5); MEAN CORPUSCULAR HEMOGLOBIN 29 pg (27-31); MEAN CORPUSCULAR HGB CONC 31 % (32-36); MEAN CORPUSCULAR VOLUME 93 fL (79.0-98.0); MONOCYTES # (AUTO) 0.4 K/uL (0.0-1.0); MONOCYTES % (AUTO) 3.7 % (1.7-9.3); NEUTROPHILS # (AUTO) 9.1 K/uL (1.8-7.7); NEUTROPHILS % (AUTO) 90.2 % (40.0-70.0); PLATELET COUNT (AUTO) 107 K/uL (130-430); RED BLOOD CELL COUNT(AUTO) 2.92 MIL/uL (4.2-6.2); RED CELL DISTRIBUTION WIDTH 21.3 % (9.0-15.0)
[2023-01-15 05:31] LABS: CALCIUM 7.6 mg/dL (8.4-11.0); CREATININE 0.57 mg/dL (0.55-1.30); POTASSIUM 3.9 mmol/L (3.5-5.1)
[2023-01-15] MEDS: MEROPENEM 1 GM IVPB PREMIX 50 ML IV SCH ×3 (06:06→21:04)
[2023-01-15] MEDS: NORMAL SALINE 5 ML DISP.SYRIN IVF SCH ×3 (06:06→21:04)
[2023-01-15 06:48] LABS: ERYTHROCYTE SEDIMENTATION RATE 56 MM/HR (0-15)
[2023-01-15] MEDS: ALBUTEROL SULFATE 0.083% 2.5 MG/3 ML VIAL.NEB INH SCH ×2 (07:52→19:50)
[2023-01-15] MEDS: SULFAMET 800MG/TMP 160MG, 20 ML UDBTL GT SCH (08:53)
[2023-01-15] MEDS: FUROSEMIDE 40 MG/4 ML VIAL IVP SCH ×2 (08:54→21:03)
[2023-01-15] MEDS: POLYETHYLENE GLYCOL 3350, 17 GM/ POWD.PACK PO SCH ×2 (08:54→21:03)
[2023-01-15] MEDS: FAMOTIDINE 20 MG TABLET PO SCH (08:54)
[2023-01-15] MEDS: MINERAL OIL 30 ML UDC PO SCH (08:54)
[2023-01-15] MEDS: SERTRALINE HCL 50 MG TABLET PO SCH (08:55)
[2023-01-15] MEDS: ENOXAPARIN SODIUM 40 MG/0.4 ML SYRINGE SUBCUT SCH (08:55)
[2023-01-15] MEDS: LEVOTHYROXINE SODIUM 0.125 MG TABLET PO SCH (08:55)
[2023-01-15] MEDS: QUEtiapine FUMARATE 100 MG TABLET PO SCH ×3 (08:55→21:03)
[2023-01-15] MEDS ORDERED: PROPOFOL DRIP 100 ML IV PRN (09:30)
[2023-01-15] MEDS: ATORVASTATIN 20 MG TABLET PO SCH (21:03)
[2023-01-15] MEDS: MIDAZOLAM IN NACL,ISO-OSMOT/PF 100 ML IV PRN (23:44)
[2023-01-16] VITALS (46 sets, daily range): BP systolic 85–106; PULSE 94–132; RESP 21–24; TEMP 98.7–99.7; O2SAT 90–97
[2023-01-16] MEDS: FENTANYL CITRATE-0.9 % NACL/PF 100 ML IV PRN ×4 (00:32→20:51)
[2023-01-16] MEDS: METOCLOPRAMIDE HCL 10 MG/2 ML VIAL IVP SCH ×3 (01:13→17:51)
[2023-01-16] MEDS: NOREPINEPHRINE BITARTRATE 4 MG in NS 246 ML IV PRN ×2 (03:08→15:42)
[2023-01-16 04:23] LABS: ERYTHROCYTE SEDIMENTATION RATE 25 MM/HR (0-15)
[2023-01-16 04:53] LABS: BASOPHILS % (AUTO) 0.3 % (0.0-2.0); EOSINOPHILS % (AUTO) 0.1 % (0.0-4.0); HEMATOCRIT 26.4 % (36-54); HEMOGLOBIN 8.2 g/dL (14.0-18.0); LYMPHOCYTES # (AUTO) 0.9 K/uL (1.0-5.5); LYMPHOCYTES % (AUTO) 9.2 % (20.5-51.5); MEAN CORPUSCULAR HEMOGLOBIN 29 pg (27-31); MEAN CORPUSCULAR HGB CONC 31 % (32-36); MEAN CORPUSCULAR VOLUME 93 fL (79.0-98.0); MONOCYTES # (AUTO) 0.5 K/uL (0.0-1.0); MONOCYTES % (AUTO) 4.9 % (1.7-9.3); NEUTROPHILS # (AUTO) 8.3 K/uL (1.8-7.7); NEUTROPHILS % (AUTO) 85.5 % (40.0-70.0); PLATELET COUNT (AUTO) 106 K/uL (130-430); RED BLOOD CELL COUNT(AUTO) 2.83 MIL/uL (4.2-6.2); RED CELL DISTRIBUTION WIDTH 21.1 % (9.0-15.0); WHITE BLOOD COUNT (AUTO) 9.7 K/uL (4.8-10.8)
[2023-01-16 05:00] LABS: ALBUMIN 1.2 g/dL (3.4-4.8); CALCIUM 7.1 mg/dL (8.4-11.0); CREATININE 0.8 mg/dL (0.55-1.30); POTASSIUM 3.9 mmol/L (3.5-5.1); TOTAL BILIRUBIN 0.4 mg/dL (0.0-1.0); TOTAL PROTEIN, SERUM 5.2 g/dL (6.4-8.3)
[2023-01-16] MEDS: NORMAL SALINE 5 ML DISP.SYRIN IVF SCH ×3 (05:36→20:57)
[2023-01-16] MEDS: MEROPENEM 1 GM IVPB PREMIX 50 ML IV SCH ×3 (05:36→20:57)
[2023-01-16] MEDS: ALBUTEROL SULFATE 0.083% 2.5 MG/3 ML VIAL.NEB INH SCH ×2 (07:54→19:43)
[2023-01-16] MEDS: IPRATROPIUM BROM 0.5 MG/2.5 ML VIAL.NEB (ATROVENT) INH PRN ×2 (07:54→19:43)
[2023-01-16] MEDS: SULFAMET 800MG/TMP 160MG, 20 ML UDBTL GT SCH (08:18)
[2023-01-16] MEDS: MINERAL OIL 30 ML UDC PO SCH (08:19)
[2023-01-16] MEDS: POLYETHYLENE GLYCOL 3350, 17 GM/ POWD.PACK PO SCH ×2 (08:19→20:55)
[2023-01-16] MEDS: FUROSEMIDE 40 MG/4 ML VIAL IVP SCH ×2 (08:19→20:53)
[2023-01-16] MEDS: QUEtiapine FUMARATE 100 MG TABLET PO SCH ×3 (08:20→20:56)
[2023-01-16] MEDS: LEVOTHYROXINE SODIUM 0.125 MG TABLET PO SCH (08:20)
[2023-01-16] MEDS: FAMOTIDINE 20 MG TABLET PO SCH (08:20)
[2023-01-16] MEDS: SERTRALINE HCL 50 MG TABLET PO SCH (08:21)
[2023-01-16] MEDS: ENOXAPARIN SODIUM 40 MG/0.4 ML SYRINGE SUBCUT SCH (08:21)
[2023-01-16] MEDS ORDERED: DIGOXIN 0.5 MG/2 ML AMP IVP ONE (12:15)
[2023-01-16] MEDS: NACL 0.9% 1,000 ML IV SCH (17:00)
[2023-01-16] MEDS ORDERED: MENTHOL/ZINC OXIDE 113 GM OINT. TP PRN (17:30)
[2023-01-16] MEDS: ATORVASTATIN 20 MG TABLET PO SCH (20:53)
[2023-01-17] VITALS (37 sets, daily range): BP systolic 86–140; PULSE 94–170; RESP 22–29; TEMP 97.5–100.6; O2SAT 84–98
[2023-01-17] MEDS: NOREPINEPHRINE BITARTRATE 4 MG in NS 246 ML IV PRN ×3 (00:48→11:34)
[2023-01-17] MEDS: METOCLOPRAMIDE HCL 10 MG/2 ML VIAL IVP SCH ×4 (01:28→18:30)
[2023-01-17] MEDS: FENTANYL CITRATE-0.9 % NACL/PF 100 ML IV PRN ×3 (01:50→16:59)
[2023-01-17 05:26] LABS: ERYTHROCYTE SEDIMENTATION RATE 47 MM/HR (0-15)
[2023-01-17 05:32] LABS: BASOPHILS # (AUTO) 0.1 K/uL (0.0-0.2); BASOPHILS % (AUTO) 0.8 % (0.0-2.0); EOSINOPHILS % (AUTO) 0.1 % (0.0-4.0); HEMATOCRIT 27.6 % (36-54); HEMOGLOBIN 8.6 g/dL (14.0-18.0); LYMPHOCYTES # (AUTO) 0.8 K/uL (1.0-5.5); LYMPHOCYTES % (AUTO) 8.5 % (20.5-51.5); MEAN CORPUSCULAR HEMOGLOBIN 29 pg (27-31); MEAN CORPUSCULAR HGB CONC 31 % (32-36); MEAN CORPUSCULAR VOLUME 93 fL (79.0-98.0); MONOCYTES # (AUTO) 0.5 K/uL (0.0-1.0); MONOCYTES % (AUTO) 5.4 % (1.7-9.3); NEUTROPHILS # (AUTO) 8.2 K/uL (1.8-7.7); NEUTROPHILS % (AUTO) 85.2 % (40.0-70.0); PLATELET COUNT (AUTO) 110 K/uL (130-430); RED BLOOD CELL COUNT(AUTO) 2.95 MIL/uL (4.2-6.2); RED CELL DISTRIBUTION WIDTH 20.8 % (9.0-15.0); WHITE BLOOD COUNT (AUTO) 9.7 K/uL (4.8-10.8)
[2023-01-17] MEDS: MEROPENEM 1 GM IVPB PREMIX 50 ML IV SCH ×3 (05:48→22:02)
[2023-01-17] MEDS: NORMAL SALINE 5 ML DISP.SYRIN IVF SCH ×3 (05:49→22:00)
[2023-01-17 05:59] LABS: CALCIUM 7.3 mg/dL (8.4-11.0); CREATININE 0.9 mg/dL (0.55-1.30)
[2023-01-17] MEDS: ALBUTEROL SULFATE 0.083% 2.5 MG/3 ML VIAL.NEB INH SCH ×2 (07:52→19:51)
[2023-01-17] MEDS: ENOXAPARIN SODIUM 40 MG/0.4 ML SYRINGE SUBCUT SCH (10:03)
[2023-01-17] MEDS: MIDAZOLAM IN NACL,ISO-OSMOT/PF 100 ML IV PRN (10:03)
[2023-01-17] MEDS: POLYETHYLENE GLYCOL 3350, 17 GM/ POWD.PACK PO SCH ×2 (10:09→22:21)
[2023-01-17] MEDS: SULFAMET 800MG/TMP 160MG, 20 ML UDBTL GT SCH (10:09)
[2023-01-17] MEDS: DIGOXIN 0.5 MG/2 ML AMP IVP SCH (10:11)
[2023-01-17] MEDS: FAMOTIDINE 20 MG TABLET PO SCH (10:11)
[2023-01-17] MEDS: LEVOTHYROXINE SODIUM 0.125 MG TABLET PO SCH (10:11)
[2023-01-17] MEDS: QUEtiapine FUMARATE 100 MG TABLET PO SCH ×3 (10:12→22:21)
[2023-01-17] MEDS: SERTRALINE HCL 50 MG TABLET PO SCH (10:13)
[2023-01-17 11:07] LABS: ABG O2 SAT% ESTIMATE 95.1 % (94.0-100.0); BLOOD GAS BASE EXCESS 1.2 mmol/L (-3.0-3.0); BLOOD GAS HCO3 23.6 mmol/L (21.0-27.0); BLOOD GAS PCO2 31.3 mmHg (32.0-45.0); BLOOD GAS PH 7.495 (7.350-7.450)
[2023-01-17 11:12] LABS: ALLEN'S TEST POSITIVE (P)
[2023-01-17] MEDS: FUROSEMIDE 40 MG/4 ML VIAL IVP SCH ×2 (11:20→22:20)
[2023-01-17] MEDS: MINERAL OIL 30 ML UDC PO SCH (11:20)
[2023-01-17] MEDS: NACL 0.9% 1,000 ML IV SCH (13:00)
[2023-01-17] MEDS: NOREPINEPHRINE BITARTRATE 16 MG in NS 234 ML IV PRN (14:43)
[2023-01-17] MEDS: IPRATROPIUM BROM 0.5 MG/2.5 ML VIAL.NEB (ATROVENT) INH PRN (15:12)
[2023-01-17] MEDS: BALSAM PERU/CASTOR OIL 56.7 GM OINT...G. TP SCH ×2 (15:33→15:38)
[2023-01-17] MEDS ORDERED: ADENOSINE 6MG/2ML VIAL ONE (18:56)
[2023-01-17] MEDS ORDERED: dilTIAZem HCL IVP 5 MG/ML VIAL IVP ONE (19:00)
[2023-01-17] MEDS ORDERED: ADENOSINE 6MG/2ML VIAL IVP ONE (19:00)
[2023-01-17] MEDS ORDERED: dilTIAZem HCL IVP 5 MG/ML VIAL ONE (19:04)
[2023-01-17] MEDS: ATORVASTATIN 20 MG TABLET PO SCH (22:20)
[2023-01-18] VITALS (22 sets, daily range): BP systolic 45–111; PULSE 40–159; RESP 22–31; TEMP 96.8–101.3; O2SAT 62–94
[2023-01-18] MEDS: METOCLOPRAMIDE HCL 10 MG/2 ML VIAL IVP SCH ×3 (00:37→11:34)
[2023-01-18] MEDS ORDERED: NOREPINEPHRINE 4 MG/4 ML VIAL IV ONE (03:47)
[2023-01-18] MEDS ORDERED: PHENYLEPHRINE HCL 100 MG in NS 240 ML IV PRN (05:30)
[2023-01-18] MEDS ORDERED: dilTIAZem HCL IVP 5 MG/ML VIAL IVP ONE (05:30)
[2023-01-18] MEDS ORDERED: PHENYLEPHRINE HCL 10 MG/ML VIAL (NEOSYNEPHRINE) ONE (05:31)
[2023-01-18] MEDS ORDERED: dilTIAZem HCL IVP 5 MG/ML VIAL ONE (05:33)
[2023-01-18] MEDS: MIDAZOLAM IN NACL,ISO-OSMOT/PF 100 ML IV PRN (05:54)
[2023-01-18 06:19] LABS: BASOPHILS # (AUTO) 0.1 K/uL (0.0-0.2); BASOPHILS % (AUTO) 0.5 % (0.0-2.0); EOSINOPHILS % (AUTO) 0.1 % (0.0-4.0); HEMATOCRIT 33.1 % (36-54); HEMOGLOBIN 10.2 g/dL (14.0-18.0); LYMPHOCYTES # (AUTO) 0.9 K/uL (1.0-5.5); LYMPHOCYTES % (AUTO) 8.2 % (20.5-51.5); MEAN CORPUSCULAR HEMOGLOBIN 29 pg (27-31); MEAN CORPUSCULAR HGB CONC 31 % (32-36); MEAN CORPUSCULAR VOLUME 94 fL (79.0-98.0); MONOCYTES # (AUTO) 0.3 K/uL (0.0-1.0); MONOCYTES % (AUTO) 2.9 % (1.7-9.3); NEUTROPHILS # (AUTO) 10.1 K/uL (1.8-7.7); NEUTROPHILS % (AUTO) 88.3 % (40.0-70.0); PLATELET COUNT (AUTO) 127 K/uL (130-430); RED BLOOD CELL COUNT(AUTO) 3.54 MIL/uL (4.2-6.2); RED CELL DISTRIBUTION WIDTH 21.2 % (9.0-15.0); WHITE BLOOD COUNT (AUTO) 11.5 K/uL (4.8-10.8)
[2023-01-18 06:24] LABS: ERYTHROCYTE SEDIMENTATION RATE 59 MM/HR (0-15)
[2023-01-18] MEDS: MEROPENEM 1 GM IVPB PREMIX 50 ML IV SCH (06:26)
[2023-01-18] MEDS: NORMAL SALINE 5 ML DISP.SYRIN IVF SCH (06:28)
[2023-01-18] MEDS: NOREPINEPHRINE BITARTRATE 16 MG in NS 234 ML IV PRN ×2 (07:01→10:51)
[2023-01-18 07:20] LABS: CREATININE 1.95 mg/dL (0.55-1.30); POTASSIUM 4.5 mmol/L (3.5-5.1)
[2023-01-18 07:27] LABS: CALCIUM 6.8 mg/dL (8.4-11.0)
[2023-01-18] MEDS: ALBUTEROL SULFATE 0.083% 2.5 MG/3 ML VIAL.NEB INH SCH (07:44)
[2023-01-18] MEDS ORDERED: AMIODARONE HCL 450 MG in D5W 241 ML IV SCH (08:15)
[2023-01-18] MEDS ORDERED: VECURONIUM BROMIDE 50 MG in NS 50 ML IV PRN (08:15)
[2023-01-18] MEDS ORDERED: CALCIUM GLUCONATE 1 GM/10 ML VIAL IVP ONE ×2 (08:15→11:00)
[2023-01-18] MEDS ORDERED: AMIODARONE HCL 450 MG/9 ML VIAL IV ONE (08:29)
[2023-01-18] MEDS ORDERED: NACL 0.9% 1,000 ML IV ONE (08:30)
[2023-01-18] MEDS ORDERED: AMIODARONE HCL 150 MG in D5W 100 ML IV ONE ×2 (08:45→09:00)
[2023-01-18 08:47] LABS: BLOOD GAS BASE EXCESS -3.7 mmol/L (-3.0-3.0); BLOOD GAS HCO3 19.5 mmol/L (21.0-27.0); BLOOD GAS PCO2 30.4 mmHg (32.0-45.0); BLOOD GAS PH 7.424 (7.350-7.450)
[2023-01-18 08:54] LABS: BLOOD GAS PO2 47.5 mmHg (75.0-100.0)
[2023-01-18 08:55] LABS: ABG O2 SAT% ESTIMATE 84.9 % (94.0-100.0); ALLEN'S TEST POSITIVE (P)
[2023-01-18] MEDS: POLYETHYLENE GLYCOL 3350, 17 GM/ POWD.PACK PO SCH (09:00)
[2023-01-18] MEDS: MINERAL OIL 30 ML UDC PO SCH (09:00)
[2023-01-18] MEDS: SULFAMET 800MG/TMP 160MG, 20 ML UDBTL GT SCH (09:00)
[2023-01-18] MEDS: FAMOTIDINE 20 MG TABLET PO SCH (09:00)
[2023-01-18] MEDS: SERTRALINE HCL 50 MG TABLET PO SCH (09:00)
[2023-01-18] MEDS: LEVOTHYROXINE SODIUM 0.125 MG TABLET PO SCH (09:00)
[2023-01-18] MEDS: DIGOXIN 0.5 MG/2 ML AMP IVP SCH (10:03)
[2023-01-18] MEDS: FUROSEMIDE 40 MG/4 ML VIAL IVP SCH (10:04)
[2023-01-18] MEDS: ENOXAPARIN SODIUM 40 MG/0.4 ML SYRINGE SUBCUT SCH (10:04)
[2023-01-18] MEDS: NACL 0.9% 1,000 ML IV SCH (10:05)
[2023-01-18] MEDS ORDERED: NACL 0.9% 1,000 ML IV SCH (10:45)
[2023-01-18] MEDS ORDERED: SODIUM BICARBONATE 8.4% JECT 50 MEQ/50 ML SYRINGE IVP ONE (11:15)
[2023-01-18] MEDS ORDERED: CALCIUM GLUC 1 GM/100ML-NACL 100 ML IV ONE (11:30)
[2023-01-18] MEDS: BALSAM PERU/CASTOR OIL 56.7 GM OINT...G. TP SCH (11:35)
[2023-01-18] MEDS ORDERED: FUROSEMIDE 100 MG in D5W 90 ML IV SCH (12:00)
[2023-01-18] MEDS: INSULIN REGULAR, HUMAN 100 UNITS/ML, 3 ML VIAL (humuLIN R) SUBCUT PRN (12:34)
[2023-01-18] MEDS ORDERED: FLUCONAZOLE 200 mg/ NS 100 ML IV ONE (14:00)
[2023-01-18] MEDS ORDERED: EPINEPHrine JECT 0.1 MG/ML SYR ONE (14:00)
[2023-01-18] MEDS ORDERED: VASOPRESSIN 40 UNITS in NS 38 ML IV PRN (14:45)
[2023-01-18] MEDS ORDERED: VASOPRESSIN 20 UNITS/ML VIAL IV ONE (14:53)
[2023-01-18] MEDS ORDERED: DAPTOmycin 500 MG in NS 50 ML IV SCH (15:00)
[2023-01-19] MEDS ORDERED: FLUCONAZOLE 100 mg/ NS 50 ML IV SCH (14:00)
== END 2023-01-18 16:10 | DRG 720 ==
LOC: SED 02:49 → STU 06:00 → SIC 01-04 01:48
PROVIDERS: ADMIT Preventive Medicine Preventive Medicine/Occupational Environmental Medicine; ATTEND Preventive Medicine Preventive Medicine/Occupational Environmental Medicine
PROC: 5A1955Z Respiratory Ventilation, Greater than 96 Consecutive Hours (ICD-10-PCS; principal; 2023-01-04)
PROC: 02HV33Z Insertion of Infusion Device into Superior Vena Cava, Percutaneous Approach (ICD-10-PCS; 2023-01-04)
PROC: B548ZZA Ultrasonography of Superior Vena Cava, Guidance (ICD-10-PCS; 2023-01-04)
PROC: 5A09357 Assistance with Respiratory Ventilation, Less than 24 Consecutive Hours, Continuous Positive Airway Pressure (ICD-10-PCS; 2023-01-04)
PROC: 0BH17EZ Insertion of Endotracheal Airway into Trachea, Via Natural or Artificial Opening (ICD-10-PCS; 2023-01-04)
PROC: 4A00X4Z Measurement of Central Nervous Electrical Activity, External Approach (ICD-10-PCS; 2023-01-05)
PROC: 30233N1 Transfusion of Nonautologous Red Blood Cells into Peripheral Vein, Percutaneous Approach (ICD-10-PCS; 2023-01-05)
PROC: 0B9H8ZX Drainage of Lung Lingula, Via Natural or Artificial Opening Endoscopic, Diagnostic (ICD-10-PCS; 2023-01-06)
PROC: 0B9D8ZX Drainage of Right Middle Lung Lobe, Via Natural or Artificial Opening Endoscopic, Diagnostic (ICD-10-PCS; 2023-01-06)
DX: A41.9 Sepsis, unspecified organism (principal); K72.00 Acute and subacute hepatic failure without coma; J96.01 Acute respiratory failure with hypoxia; R65.21 Severe sepsis with septic shock; G93.41 Metabolic encephalopathy; E43 Unspecified severe protein-calorie malnutrition; J15.5 Pneumonia due to Escherichia coli; I50.23 Acute on chronic systolic (congestive) heart failure; D69.6 Thrombocytopenia, unspecified; I11.0 Hypertensive heart disease with heart failure; G93.1 Anoxic brain damage, not elsewhere classified; E83.51 Hypocalcemia; E87.1 Hypo-osmolality and hyponatremia; G89.4 Chronic pain syndrome; E83.41 Hypermagnesemia; M54.9 Dorsalgia, unspecified; E87.5 Hyperkalemia; D64.9 Anemia, unspecified; E78.5 Hyperlipidemia, unspecified; E11.65 Type 2 diabetes mellitus with hyperglycemia; Z20.822 Contact with and (suspected) exposure to COVID-19; E11.649 Type 2 diabetes mellitus with hypoglycemia without coma; E66.9 Obesity, unspecified; E88.09 Other disorders of plasma-protein metabolism, not elsewhere classified; E83.52 Hypercalcemia; K56.7 Ileus, unspecified; K12.30 Oral mucositis (ulcerative), unspecified; N17.9 Acute kidney failure, unspecified; Z88.1 Allergy status to other antibiotic agents; Z79.899 Other long term (current) drug therapy; Z68.28 Body mass index [BMI] 28.0-28.9, adult; Z85.048 Personal history of other malignant neoplasm of rectum, rectosigmoid junction, and anus; Z90.49 Acquired absence of other specified parts of digestive tract; Z93.3 Colostomy status; Z99.11 Dependence on respirator [ventilator] status; Z85.038 Personal history of other malignant neoplasm of large intestine
CPT/HCPCS: 36415; 36600; 70450-TC; 71045; 71275; 74018; 76376; 80048; 80053; 82803; 82962; 83605; 83615; 83735; 83880; 84100; 84484; 85025; 85379; 85651-TC; 86886; 86900; 86901; 86920; 87040; 87070-TC; 87081; 87116; 87205-TC; 87305; 92950; 93005; 93971; 94003; 94640; 94660; 94760; 95816; 99285; C1751; G0378; J0153; J0171; J0282; J0456; J0610; J0692; J0696; J0878; J1030; J1160; J1450; J1650; J1815; J1940; J2060; J2185; J2248; J2250; J2270; J2370; J2704; J2765; J3010; J3490; J7030; J7040; J7050; J7060; J7120; P9021; Q9967